=== PATIENT | male | born 1970 | race Caucasian/White ===

== ENCOUNTER 2020-07-01 11:44 | Outpatient (REF) | payer OTHER, SELFPAY ==
[2020-07-01 15:09] LABS: Alanine Aminotransferase 36 U/L (0-40); Albumin Level 4.4 g/dL (3.5-5.0); Alkaline Phosphatase 55 U/L (39-117); Anion Gap 13 (12-20); Aspartate Amino Transferase 23 U/L (5-37); Bilirubin Total 0.7 mg/dL (0.0-1.0); Blood Urea Nitrogen 14 mg/dL (9-16); Calcium 8.7 mg/dL (8.4-10.2); Carbon Dioxide 30 mmol/L (22-29); Chloride 101 mmol/L (96-108); Cholesterol 257 mg/dL; Estimated Glomerular Filt Rate > 60; Glucose Fasting 82 mg/dL (60-99); HDL Cholesterol 57 mg/dL; LDL Cholesterol Calculated 179 mg/dl; Potassium 4.2 mmol/l (3.3-5.1); Sodium 140 mmol/L (135-145); Total Protein 7.5 g/dL (6.5-8.0); Triglycerides 105 mg/dL
[2020-07-01 15:23] LABS: TSH reflex Free T4 0.97 mIU/mL (0.32-4.0)
== END 2020-07-01 11:45 | disposition home or self-care (01) ==
LOC: HO.HMGCLDS 11:44
PROVIDERS: PCP Nurse Practitioner Family; Visit Provider Nurse Practitioner Family
DX: Z12.5 Encounter for screening for malignant neoplasm of prostate (principal); Z00.00 Encounter for general adult medical examination without abnormal findings
CPT/HCPCS: 80053; 80061; 84153; 84443

== ENCOUNTER 2020-12-31 10:22 | Outpatient (REF) | payer OTHER, SELFPAY ==
--- NOTE | ~2020-12-31 | US_ITS ---
EXAMINATION: US VENOUS ULTRASOUND WITH DOPPLER LOWER EXTREMITY, LEFT CLINICAL INFORMATION: Pain COMPARISON: Previous exam December 2012 TECHNIQUE: Ultrasound of the deep veins is performed from the hip to the calf with compression sonography and color and pulse Doppler assessment. Spectral analysis with color-flow imaging is performed. FINDINGS: There is normal venous compression and respiratory variation and augmented flow. The visualized common femoral vein, superficial femoral vein, profunda femoral vein, popliteal vein, and the trifurcation region shows no evidence of deep venous thrombosis. There is no popliteal fossa cyst. US/US venous duplex LE LT IMPRESSION: No DVT demonstrated in the left lower extremity.
== END 2020-12-31 10:23 | disposition home or self-care (01) ==
LOC: HO.US 10:22
PROVIDERS: PCP Nurse Practitioner Family; Visit Provider Nurse Practitioner Family
DX: M79.662 Pain in left lower leg (principal); E66.9 Obesity, unspecified
CPT/HCPCS: 93971

== ENCOUNTER 2021-04-10 08:30 | Outpatient (REF) | payer OTHER, SELFPAY ==
[2021-04-10 11:35] LABS: MANUAL DIFF FLAG NO
[2021-04-10 11:48] LABS: Basophils Absolute Auto 0.1 X10*3/uL (0.0-0.2); Eosinophils Absolute Auto 0.1 X10*3/uL (0.0-0.4); Eosinophils Percent Auto 2.4 % (0-4); Hematocrit 43.8 % (42-52); Hemoglobin 14.7 g/dl (14.0-18.0); Imm Gran Abs Auto 0.01 X10*3/uL (0.00-0.03); Imm Gran Pct Auto 0.2 % (0.0-0.4); Mean Corpuscular HGB Conc 33.6 g/dl (31.0-36.0); Mean Corpuscular Hemoglobin 30.3 pg (27.0-33.0); Mean Corpuscular Volume 90.3 fL (80-98); Mean Platelet Volume 10.2 fL (9.4-12.4); Monocytes Absolute Auto 0.6 X10*3/uL (0.1-1.2); Neutrophils Absolute Auto 2.2 X10*3/uL (2.0-8.3); Neutrophils Percent Auto 44.4 % (45-73); Platelet Count 240 X10*3/uL (160-400); Red Blood Count 4.85 X10*6/uL (4.60-5.80); Red Cell Distribution Width 12.2 % (11.0-16.0); White Blood Count 4.9 X10*3/uL (4.8-10.8)
[2021-04-10 11:50] LABS: Ethanol < 10 mg/dL
[2021-04-10 12:04] LABS: Alanine Aminotransferase 24 U/L (0-40); Alkaline Phosphatase 47 U/L (39-117); Anion Gap 11 (12-20); Aspartate Amino Transferase 21 U/L (5-37); Bilirubin Total 0.5 mg/dL (0.0-1.0); Blood Urea Nitrogen 14 mg/dL (9-16); Calcium 9.2 mg/dL (8.4-10.2); Carbon Dioxide 27 mmol/L (22-29); Chloride 103 mmol/L (96-108); Estimated Glomerular Filt Rate > 60; Glucose Random 102 mg/dL (60-115); Potassium 4.5 mmol/L (3.3-5.1); Sodium 136 mmol/L (135-145); Total Protein 6.7 g/dL (6.5-8.0)
[2021-04-10 12:05] LABS: Amphetamine Screen Urine Not Detected (Not Detect); Barbiturates, Urine Not Detected (Not Detect); Benzodiazepines Screen Urine Not Detected (Not Detect); Cannabinoid Screen Urine Not Detected (Not Detect); Cocaine Screen Urine Not Detected (Not Detect); Fentanyl, urine Not Detected (Not Detect); Opiate Screen Urine Not Detected (Not Detect); Phencyclidine Screen Urine Not Detected (Not Detect)
[2021-04-17 11:47] LABS: EDDP (Methadone Metabolite) negative; Methadone, Urine MS negative
== END 2021-04-10 08:31 | disposition home or self-care (01) ==
LOC: HO.HMGCLDS 08:30
PROVIDERS: PCP Nurse Practitioner Family; Visit Provider Nurse Practitioner Psychiatric/Mental Health
DX: Z51.81 Encounter for therapeutic drug level monitoring (principal); Z79.899 Other long term (current) drug therapy
CPT/HCPCS: 80053; 80307; 80358; 82077; 85025

== ENCOUNTER 2021-07-22 12:13 | Outpatient (REF) | payer OTHER, SELFPAY ==
[2021-07-22 12:57] LABS: Influenza A PCR NEGATIVE (Negative); Influenza B PCR NEGATIVE (Negative); Resp Syncy Virus RNA Qual PCR NEGATIVE (Negative); SARS COV2 PCR INHOUSE POSITIVE (Negative)
== END 2021-07-22 12:14 | disposition home or self-care (01) ==
LOC: HO.LNP 12:13
PROVIDERS: Visit Provider Physician Assistant
DX: Z20.822 Contact with and (suspected) exposure to COVID-19 (principal); B34.9 Viral infection, unspecified; R05.9 Cough, unspecified
CPT/HCPCS: 0241U

== ENCOUNTER 2023-06-21 08:19 | Outpatient (REF) | payer OTHER, SELFPAY ==
[2023-06-21 11:19] LABS: Appearance Urine Clear; Color Urine Yellow; Glucose Urine UA Negative (Negative); Leukocyte Esterase Urine Negative (Negative); Nitrite Urine Negative (Negative); PH 5.5 (5.0-9.0); Specific Gravity - Urine >= 1.030 (1.005-1.025); UMIC TRIGGER UACC YES; Urine Blood Trace (Negative); Urine Ketones Negative (Negative); Urine Protein Negative (Neg-Trace)
[2023-06-21 11:29] LABS: Bacteria Urine None Seen (None Seen); Hyaline Casts Urine 0-2 /LPF (0-2); MANUAL DIFF FLAG NO; RBC Urine 0-2 /HPF (0-2); Squamous Epithelial Cell Urine 0-2 /HPF (0-2); WBC Urine 0-5 /HPF (0-5)
[2023-06-21 11:41] LABS: Basophils Absolute Auto 0.1 X10*3/uL (0.0-0.2); Basophils Percent Auto 0.8 % (0-2); Eosinophils Absolute Auto 0.1 X10*3/uL (0.0-0.4); Eosinophils Percent Auto 2.1 % (0-4); Hematocrit 45.1 % (42.0-52.0); Hemoglobin 15.1 g/dl (14.0-18.0); Imm Gran Abs Auto 0.01 X10*3/uL (0.00-0.03); Imm Gran Pct Auto 0.2 % (0.0-0.4); Lymphocytes Absolute Auto 2.1 X10*3/uL (1.2-4.9); Lymphocytes Percent Auto 33.8 % (20-40); Mean Corpuscular HGB Conc 33.5 g/dl (31.0-36.0); Mean Corpuscular Hemoglobin 30.1 pg (27.0-33.0); Mean Platelet Volume 9.7 fL (9.4-12.4); Monocytes Absolute Auto 0.7 X10*3/uL (0.1-1.2); Monocytes Percent Auto 11.9 % (2-11); Neutrophils Absolute Auto 3.1 x10*3/uL (2.0-8.3); Neutrophils Percent Auto 51.2 % (45-73); Platelet Count 243 X10*3/uL (160-400); Red Blood Count 5.01 X10*6/uL (4.60-5.80); Red Cell Distribution Width 12.1 % (11.0-16.0); White Blood Count 6.1 X10*3/uL (4.8-10.8)
[2023-06-21 11:53] LABS: Alanine Aminotransferase 27 U/L (0-40); Alkaline Phosphatase 45 U/L (39-117); Anion Gap 8 (12-20); Aspartate Amino Transferase 19 U/L (5-37); Bilirubin Total 0.4 mg/dL (0.0-1.0); Blood Urea Nitrogen 18 mg/dL (9-16); Calcium 9.3 mg/dL (8.4-10.2); Carbon Dioxide 30 mmol/L (22-29); Chloride 105 mmol/L (96-108); Cholesterol 226 mg/dL (<200); Estimated Glomerular Filt Rate > 60; Glucose Fasting 109 mg/dL (60-99); HDL Cholesterol 58 mg/dL (>40); LDL Cholesterol Calculated 156 mg/dL (<100); Potassium 4.1 mmol/L (3.3-5.1); Sodium 139 mmol/L (135-145); Total Protein 7.1 g/dL (6.5-8.0); Triglycerides 64 mg/dL (<150)
[2023-06-21 12:07] LABS: Prostate Specific Antigen Scr 0.37 ng/mL (<0.05-4.0)
[2023-06-21 12:18] LABS: TSH reflex Free T4 0.87 uIU/mL (0.32-4.0)
== END 2023-06-21 08:20 | disposition home or self-care (01) ==
LOC: HO.HMGCLDS 08:19
PROVIDERS: PCP Nurse Practitioner Family; Visit Provider Nurse Practitioner Family
DX: Z00.00 Encounter for general adult medical examination without abnormal findings (principal); R31.29 Other microscopic hematuria; Z12.5 Encounter for screening for malignant neoplasm of prostate
CPT/HCPCS: 36415; 80053; 80061; 81001; 84153; 84443; 85025

== ENCOUNTER 2023-06-21 08:39 | Outpatient (AMB) | payer OTHER, SELFPAY ==
--- NOTE | 2023-06-21 08:43 | MHC.PC.OV ---
Vital Signs 06/21/23 08:44 Height 5 ft 11 in Weight 290 lb BMI 40.4 BP 120/64 Blood Pressure Location Lt brachial Position Sitting Pulse 72 Pulse Source Pulse Oximeter Pulse Oximetry (%) 96 Oxygen Delivery Method Room Air Intake Visit Reasons: Med Review PER AG Intake Note: Pt is here today for her Med review Allergies codeine Adverse Reaction (Mild, Verified 06/21/23 08:45) Unknown Medication List - Last Reconciled 06/21/23 by HETAL Chavez ascorbate calcium (vitamin C) 500 mg PO DAILY bupropion HCl 150 mg PO QAM 30 days bupropion HCl 300 mg PO BEDTIME cholecalciferol (vitamin D3) PO DAILY dextroamphetamine-amphetamine 20 mg 1 tab PO BID lisinopril 10 mg PO DAILY tadalafil 10 mg PO DAILY PRN 30 days trazodone 100 mg PO BEDTIME Tobacco use date assessed: 06/21/23 Dental Screening Dental Screen Date: 06/21/23 Did you have a dental visit in the last 12 months?: Yes Did you have a dental problem in the last 6 months where you did not have access to dental care?: Yes Was dental information given to patient?: Patient has dentist HPI Med Review PER AG HPI Details HTN: Blood pressure is stable, managed with lisinopril 10mg. Denies chest pain, shortness of breath, headache, dizziness, and blurred vision. PFSH Medical History Erectile dysfunction Anxiety Depression Dyslipidemia Essential hypertension Insomnia ADHD Surgical History History of surgery Family History Father No problems noted. Mother Myocardial infarction Pancreatic cancer Social History Housing: Apartment Alcohol intake: never Patient Tobacco Use Status: Never used Tobacco e-Cigarette/Vaping Use: Never Used service: No Current occupational status: employed Cognitive needs: No Hearing needs: No Vision needs: Yes Questionnaire PHQ-9 Over the last 2 weeks, how often have you been bothered by any of the following problems? 1. Little interest or pleasure in doing things: not at all 2. Feeling down, depressed, or hopeless: several days 3. Trouble falling or staying asleep, or sleeping too much: not at all 4. Feeling tired or having little energy: not at all 5. Poor appetite or overeating: not at all 6. Feeling bad about yourself - or that you are a failure or have let yourself or your family down: not at all 7. Trouble concentrating on things, such as reading the newspaper or watching television: not at all 8. Moving or speaking so slowly that other people could have noticed. Or the opposite - being so fidgety or restless that you have been moving around a lot more than usual: not at all 9. Thoughts that you would be better off or of hurting yourself in some way: not at all Total score: 1 Source: Developed by Drs. Lan Scanlon, Dahlia Jones, Frederick Matute and colleagues, with an educational alexand[place] from [employer]. Thrive Questionnaire Date Thrive assessed: 06/21/23 I am a: Patient What is your living situation today?: I have a steady place to live Within the past 12 months, did the food you bought not last and you didn't have the money to get more?: Never true Within the past 12 months, did you worry whether your food would run out before you got money to buy more?: Never true Do you have trouble paying for medicines?: No Do you have trouble getting transportation to medical appointments?: No Do you have trouble paying your heating and electricity bill?: No Do you have trouble taking care of your child, family member or friend?: No Do you have trouble with day-to-day activities such as bathing, preparing meals, shopping, managing finances, etc.?: No Are you currently unemployed and looking for a job?: No Are you interested in more education?: No AUDIT C Alcohol Use Questionnaire (AUDIT-C) 1. How often do you have a drink containing alcohol?: Never Total Score: 0 JONES-7 AMB Questionnaire JONES-7 Date JONES - 7 assessed: 06/21/23 Feeling nervous, anxious, or on edge: 2 = More than half the days Not being able to stop or control worryin = Not at all Worrying too much about different things: 0 = Not at all Trouble relaxin = Not at all Being so restless that it is hard to sit still: 0 = Not at all Becoming easily annoyed or irritable: 1 = Several days Feeling afraid as if something awful might happen: 0 = Not at all Total JONES-7 score (0-4 normal; 5-9 mild; 10-14 moderate; 15-21 severe): 3 Source: Developed by Drs. Lan Scanlon, Dahlia Jones, Frederick Matute and colleagues, with an educational alexandria from [employer]. Review of Systems Const Reports as per HPI Physical exam (Primary Care) Vital Signs: Last Vital Signs Pulse 72 06/21/23 08:44 BP 120/64 06/21/23 08:44 Pulse Ox 96 06/21/23 08:44 Oxygen Delivery Method Room Air 06/21/23 08:44 BMI result Body Mass Index 40.4 Tobacco/Smoking Status: Tobacco use Status Tobacco use date assessed 06/21/23 06/21/23 08:52 Patient Tobacco Use Status Never used Tobacco 06/21/23 08:52 e-Cigarette/Vaping Use Never Used 06/21/23 08:52 Thrive Assessment: Date of Thrive Assessment Date Thrive assessed 06/21/23 06/21/23 08:52 Const General: cooperative Nutritional Appearance: obese Orientation/consciousness: patient oriented x3 Resp Effort & Inspection: normal respiratory effort Auscultation: clear to auscultation bilaterally Cardio Rate: regular rate Rhythm: regular rhythm Heart sounds: S1 normal heart sound present and S2 normal heart sound present Neuro General: patient oriented x3 Extrem Right lower extremity: no edema Left lower extremity: no edema Psych Appearance: grossly normal Mental Status: mental status grossly normal Speech and movement: Normal speech and movement present Affect: normal affect Attitude: cooperative Thought process: Normal thought process present Thought content: Normal thought content present Insight: Good insight present (Psych) Judgement: Good judgement present (Psych) Immunizations Boostrix Tdap 2.5 Lf unit-8 mcg-5 Lf/0.5 mL intramuscular syringe Performing Provider: HETAL Chavez Performing Location: [facility] Administered by: Taisha Prince CMA on 06/21/23 09:22 Dose Route Admin Location Dispensed Lot Number Expiration Date NDC Portable Trackman 0.5 mL IM Left Deltoid 0.5 mL [id number] 06/23/25 [id number] [employer] VIS Given Date VIS Provided VIS Publication Date 06/21/23 Single Vaccine 21 Eligibility Eligibility Date Funding Source Not VF Eligible 06/21/23 Private Assessment and Plan Assessment & Plan (1) HTN (hypertension): Code(s): I10 - Essential (primary) hypertension Plan The patient agreed to the use of a medical interpreter for this encounter. Scribed for BRIANNA Abbott- by Aileen James medical interpreter, on 06/21/2023 at 09:00 EST. Orders: Orders TDaP Immunization Today Z23 - Encounter for immunization Medications: New Boostrix Tdap (diphth,pertus(acell),tetanus) 0.5 mL IM ONCE 0.5 mL 0RF NS Z23 - Encounter for immunization Changed From trazodone 100 mg PO BEDTIME 30 days 30 tabs 2RF sleep To trazodone 3 tablets qd 100 mg PO BEDTIME sleep From lisinopril Future refills pending upcoming appt 10 mg PO DAILY 30 tabs 1RF To lisinopril 10 mg PO DAILY 90 tabs 1RF Refilled tadalafil administer approximately 30min before sexual activity; do not use more than 1 dose per 24hrs Future refills pending upcoming appt 10 mg PO DAILY 30 days PRN 30 tabs 0RF sexual activity Coding Level of Care Code Est Pt Level 3 (57450) Diagnoses HTN (hypertension) I10
[2023-06-21 08:44] VITALS: BP 120/64; PULSE 72; O2SAT 96; BMI 40.4
== END 2023-06-21 15:01 | disposition home or self-care (01) ==
PROVIDERS: PCP Nurse Practitioner Family; Visit Provider Nurse Practitioner Family
DX: I10 Essential (primary) hypertension (principal); Z23 Encounter for immunization
CPT/HCPCS: 90471; 90715; 99213

== ENCOUNTER 2023-06-28 08:34 | Outpatient (AMB) | payer OTHER, SELFPAY ==
--- NOTE | 2023-06-28 08:58 | MHC.OFFWIV ---
Intake Vital Signs 06/28/23 08:59 Height 5 ft 11 in Weight 130.748 kg BMI 40.2 BP 126/70 Blood Pressure Location Rt brachial Position Sitting Pulse 69 Pulse Source Pulse Oximeter Pulse Oximetry (%) 94 Oxygen Delivery Method Room Air Intake Visit Reasons: EP, rash on back and side ([phone]) Intake Note: pt is here for c.o rash on back and side chest mostly on left side of body, denies starting new medication Patient Tobacco Use Status: Never used Tobacco Allergies codeine Adverse Reaction (Mild, Verified 06/28/23 09:00) Unknown Do you need a note to return to daycare/school/sports/work: Yes HPI HPI Comments History of Present Illness Details 0911 53-year-old male presents with a painful rash to the left side of his body that is wrapping around, only on his left side though over the past few days, it started with pain and then he had blistering. No one around him has this rash. He has had chickenpox before however no has never had shingles. He is under a good amount of stress. Denies fevers, chills, nausea, vomiting, chest pain, shortness of breath, headache, vision changes, dizziness, changes in urinary habits or bowel habits. Physical exam vesscicular rash in a dermatomal formation overlying T3/T4 on the left side of the body size, left-sided flank in to side of flank on erythematous base. Painful This is likely shingles versus contact dermatitis. Unlikely necrotizing infection, TEN, SJS. Will discharge on Valtrex. Educated patient on diagnosis and treatment plan, answered all question, patient verbalizes understanding. At this time patient will be discharged home, advised to return with new or worsening symptoms. Educated on worrisome signs and symptoms and when to return. At this time I feel comfortable discharge home. [facility] Medical History Dyslipidemia Erectile dysfunction Anxiety Depression Essential hypertension Insomnia ADHD Surgical History History of surgery Family History Father No problems noted. Mother Myocardial infarction Pancreatic cancer Social History Housing: Apartment Alcohol intake: never Patient Tobacco Use Status: Never used Tobacco e-Cigarette/Vaping Use: Never Used service: No Current occupational status: employed Cognitive needs: No Hearing needs: No Vision needs: Yes Review of Systems Const Details: Constitutional : No Weight loss, No Fever, No Chills, No Fatigue, No Malaise ENT/Mouth : No sore throat, No Rhinorrhea Eyes: No Eye Pain, No Swelling, No Redness Cardiovascular : No Chest Pain, No SOB, No Dyspnea on Exertion, No Orthopnea, No Edema, No Palpitations Respiratory : No Cough, No Sputum, No Wheezing Gastrointestinal : No Nausea, No Vomiting, No Diarrhea, No Constipation, No abdominal Pain, No Hematochezia, No Melena Genitourinary : No Dysuria, No Urinary Frequency, No Hematuria, Musculoskeletal : No joint pain, No Myalgias, No Joint Swelling Skin : No Skin Lesions, + rash Neuro : No Weakness, No Numbness, No Dizziness, No Headache Psych : No Anxiety/Panic, No Depression All other systems reviewed and are negative All systems reviewed & are unremarkable except as noted in HPI and below Physical Exam Vital Signs: Last Vital Signs Pulse 69 06/28/23 08:59 BP 126/70 06/28/23 08:59 Pulse Ox 94 06/28/23 08:59 Oxygen Delivery Method Room Air 06/28/23 08:59 BMI result Body Mass Index 40.2 vss Appearance: Alert.? Oriented X3.? No acute distress.? Head: Normocephalic, atraumatic, no step-offs or deformities Eyes: Pupils equal, round and reactive to light.? ENT: Pharynx normal.? Neck: Normal inspection.? Neck supple.? CVS: Normal heart rate and rhythm.? Pulses normal.? Respiratory: No respiratory distress.? Breath sounds normal.? Abdomen: Soft and nontender.? Skin: Skin warm and dry.? Normal skin color.? Normal skin turgor.?+ vesscicular rash in a dermatomal formation overlying T3/T4 on the left side of the body size, left-sided flank in to side of flank on erythematous base. Painful Extremities: No lower extremity edema.? No calf ttp. 5/5 strength to bilateral upper and lower extremities Back: No midline tenderness, no C-spine tenderness, full range of motion, no CVA tenderness bilaterally Neuro: Oriented X 3.? No motor deficit.? No sensory deficit. CN 2-12 intact Assessment & Plan Assessment & Plan (1) Shingles: Code(s): B02.9 - Zoster without complications Plan Take your medications as prescribed. If you were prescribed antibiotics today, it is important that you take your medication to their entirety, do not skip any doses, do not finish them early. Follow-up with your primary care provider this week. Return to the emergency department with new or worsening symptoms. Such as fevers, chills, chest pain, shortness of breath, nausea, vomiting, dizziness, headache, vision changes, lethargy In case of emergency call 911 Medications: New valacyclovir (Valtrex) 1,000 mg PO TID 7 days 21 tabs 0RF Coding Level of Care Code Est Pt Level 3 (48058) Diagnoses Shingles B02.9
[2023-06-28 08:59] VITALS: BP 126/70; PULSE 69; O2SAT 94; BMI 40.2
== END 2023-06-28 09:30 | disposition home or self-care (01) ==
PROVIDERS: PCP Nurse Practitioner Family; Visit Provider Physician Assistant
DX: B02.9 Zoster without complications (principal)
CPT/HCPCS: 99213

== ENCOUNTER 2023-07-05 13:34 | Outpatient (AMB) | payer OTHER, SELFPAY ==
--- NOTE | 2023-07-05 13:35 | MHC.PC.OV ---
Vital Signs 07/05/23 13:40 Height 5 ft 11 in Weight 290 lb BMI 40.4 BP 130/82 Blood Pressure Location Lt brachial Position Sitting Pulse 78 Pulse Source Pulse Oximeter Pulse Oximetry (%) 98 Oxygen Delivery Method Room Air Intake Visit Reasons: PE Intake Note: Patient here for physical exam and would like to address weight and would like to talk about wegovy. Allergies codeine Adverse Reaction (Mild, Verified 07/05/23 13:39) Unknown Medication List - Last Reconciled 07/05/23 by HETAL Chavez ascorbate calcium (vitamin C) 500 mg PO DAILY atorvastatin 20 mg PO BEDTIME bupropion HCl 150 mg PO QAM 30 days bupropion HCl 300 mg PO BEDTIME cholecalciferol (vitamin D3) PO DAILY dextroamphetamine-amphetamine 20 mg 1 tab PO BID lisinopril 10 mg PO DAILY sertraline 100 mg PO BID tadalafil 10 mg PO DAILY PRN 30 days trazodone 100 mg PO BEDTIME valacyclovir (Valtrex) 1,000 mg PO TID 7 days Tobacco use date assessed: 06/21/23 Dental Screening Dental Screen Date: 07/05/23 Did you have a dental visit in the last 12 months?: Yes Did you have a dental problem in the last 6 months where you did not have access to dental care?: No Was dental information given to patient?: Patient has dentist HPI PE HPI Details Pt is here for a PE. Labs were already performed. atorvastatin sent, but not picked up yet. PSA is up to date. Micro hem noted, UA, culture, cytology, and CT urogram ordered. Pt does not smoke, works as a [employer]. Will refer to urology. Pt has never had a colon screen though he has been referred in the past. Will refer again. [facility] Medical History (Updated 07/05/23 @ 14:00 by HETAL Chavez) Screening for colon cancer Dyslipidemia Erectile dysfunction Anxiety Depression Essential hypertension Insomnia ADHD Surgical History History of surgery Family History Father No problems noted. Mother Myocardial infarction Pancreatic cancer Social History Housing: Apartment Alcohol intake: never Patient Tobacco Use Status: Never used Tobacco e-Cigarette/Vaping Use: Never Used service: No Current occupational status: employed Cognitive needs: No Hearing needs: No Vision needs: Yes Questionnaire Thrive Questionnaire Date Thrive assessed: 06/21/23 AUDIT C Alcohol Use Questionnaire (AUDIT-C) 1. How often do you have a drink containing alcohol?: Never 3. How often do you have six or more drinks on one occasion?: Never Total Score: 0 Score Reviewed/Action Taken: No JONES-7 AMB Questionnaire JONES-7 Date JONES - 7 assessed: 06/21/23 Source: Developed by Drs. Lan Scanlon, Dahlia Jones, Frederick Matute and colleagues, with an educational alex[place]ria from [employer] Review of Systems Const Denies chills and Denies fever(s) Eyes Denies blurry vision ENT Denies vertigo, Denies dizziness and Denies sore throat Card Denies chest pain at rest, Denies chest pain with activity, Denies diaphoresis, Denies dyspnea and Denies dyspnea on exertion Resp Denies cough, Denies dyspnea, Denies dyspnea on exertion and Denies wheezing GI Denies abdominal pain, Denies melena, Denies hematochezia, Denies constipation, Denies diarrhea and Denies loose stools Denies hematuria Musc Denies numbness and Denies tingling Skin/Breast Denies lesions Neuro Denies vertigo, Denies dizziness, Denies numbness and Denies tingling Psych Denies anxiety, Denies depression, Denies homicidal ideation, Denies suicidal ideation and Denies other (substance abuse) Aller/Immun Denies wheezing Physical exam (Primary Care) Vital Signs: Last Vital Signs Pulse 78 07/05/23 13:40 BP 130/82 07/05/23 13:40 Pulse Ox 98 07/05/23 13:40 Oxygen Delivery Method Room Air 07/05/23 13:40 BMI result Body Mass Index 40.4 Tobacco/Smoking Status: Tobacco use Status Tobacco use date assessed 06/21/23 07/05/23 13:37 Patient Tobacco Use Status Never used Tobacco 07/05/23 13:37 e-Cigarette/Vaping Use Never Used 07/05/23 13:37 Thrive Assessment: Date of Thrive Assessment Date Thrive assessed 06/21/23 07/05/23 13:37 Const General: cooperative Nutritional Appearance: obese morbidly obese Orientation/consciousness: patient oriented x3 HENMT Head: Yes normal to inspection, Yes normocephalic and Yes atraumatic Ears: TM's normal bilaterally Eyes General: appearance normal, both eyes and all related structures Alignment and Position: alignment normal and position normal Neck Neck: Yes normal visual inspection and Yes no lymphadenopathy Thyroid: Thyroid normal Resp Effort & Inspection: normal respiratory effort Auscultation: clear to auscultation bilaterally Cardio Rate: regular rate Rhythm: regular rhythm Heart sounds: S1 normal heart sound present, S2 normal heart sound present and no murmurs GI Palpation (GI): Soft to palpation and nontender Auscultation: normal bowel sounds Male General Exam: Yes normal external exam Penis: normal penis Scrotum: scrotum normal, testes descended bilaterally and no inguinal hernias Testes: no testicular mass Skin Rashes: no rashes Neuro General: patient oriented x3, moves all extremities, no focal motor deficits and deep tendon reflexes 2+ bilaterally Romberg Test: Negative Psych Appearance: grossly normal Mental Status: mental status grossly normal Speech and movement: Normal speech and movement present Affect: normal affect Attitude: cooperative Thought process: Normal thought process present Thought content: Normal thought content present Insight: Good insight present (Psych) Judgement: Good judgement present (Psych) Office Procedures Flu Questionnaire Does the patient have a severe egg allergy?: No Does the patient have severe life threatening allergies?: No Does the patient have a fever or illness today?: No Has the patient ever had Guillain-[place] Syndrome?: No Has the patient ever had any past reaction to a flu shot?: No Immunizations flu vacc [id number] 6mos up(PF) 60 mcg(15 mcgx4)/0.5 mL IM syringe Performing Provider: HETAL Chavez [facility] Administered by: ALEXANDRA Peace on 07/05/23 14:24 Dose Route Admin Location Dispensed Lot Number Expiration Date NDC Labor Standards Director 0.5 mL IM Left Deltoid 0.5 mL [id number] 01/16/24 [id number] [facility] VIS Given Date VIS Provided VIS Publication Date 07/05/23 Single Vaccine 21 Eligibility Eligibility Date Funding Source Not [facility] Eligible 07/05/23 Private Assessment and Plan Assessment & Plan (1) Microhematuria: Code(s): R31.29 - Other microscopic hematuria Plan: CT urogram ordered (2) Screening for colon cancer: Code(s): Z12.11 - Encounter for screening for malignant neoplasm of colon (3) Physical exam: Code(s): Z00.00 - Encounter for general adult medical examination without abnormal findings Plan The patient agreed to the use of a medical superintendent for this encounter. Scribed for BRIANNA Abbott-BC by Aileen James medical superintendent, on 07/05/2023 at 13:55 EST. Orders: Orders CT urogram Today R31.29 - Other microscopic hematuria AMB EKG-In Office Today Z00.00 - Encounter for general adult medical examination without abnormal findings Influenza [id number] Immunization Today Z23 - Encounter for immunization Referrals Urology Referral R31.29 - Other microscopic hematuria Gastroenterology Referral Z12.11 - Encounter for screening for malignant neoplasm of colon Medications: Refilled atorvastatin 20 mg PO BEDTIME 90 tabs 1RF atorvastatin 20 mg PO BEDTIME 90 tabs 1RF Coding Level of Care Code Est Pt Prev Care 40-64y(80606) Diagnoses Microhematuria R31.29 Screening for colon cancer Z12.11 Physical exam Z00.00
[2023-07-05 13:40] VITALS: BP 130/82; PULSE 78; O2SAT 98; BMI 40.4
== END 2023-07-05 14:47 | disposition home or self-care (01) ==
PROVIDERS: PCP Nurse Practitioner Family; Visit Provider Nurse Practitioner Family
DX: Z00.00 Encounter for general adult medical examination without abnormal findings (principal); R31.29 Other microscopic hematuria; Z12.11 Encounter for screening for malignant neoplasm of colon; Z23 Encounter for immunization
CPT/HCPCS: 90471; 90686; 99396

== ENCOUNTER 2023-09-01 10:45 | Outpatient (AMB) | payer OTHER, SELFPAY ==
[2023-09-01 12:32] VITALS: BP 112/72; PULSE 69; TEMP 36.5; O2SAT 96; BMI 40.3
--- NOTE | 2023-09-01 12:32 | MHC.OFFWIV ---
Intake Vital Signs 09/01/23 12:32 Height 5 ft 11 in Weight 289 lb BMI 40.3 BP 112/72 Blood Pressure Location Lt brachial Position Sitting Pulse 69 Pulse Source Pulse Oximeter Temp 97.7 F Temp Source Temporal Artery Scan Pulse Oximetry (%) 96 Oxygen Delivery Method Room Air Intake Visit Reasons: EST/cough/stomach ache([phone]) Intake Note: pt is here today for cough stomach ache started wednesday Patient Tobacco Use Status: Never used Tobacco Allergies codeine Adverse Reaction (Mild, Verified 09/01/23 13:19) Unknown Medication List - Last Reconciled 09/01/23 by Lars Guzman MD ascorbate calcium (vitamin C) 500 mg PO DAILY atorvastatin 20 mg PO BEDTIME bupropion HCl 150 mg PO QAM 30 days bupropion HCl 300 mg PO BEDTIME cholecalciferol (vitamin D3) PO DAILY dextroamphetamine-amphetamine 20 mg 1 tab PO BID lisinopril 10 mg PO DAILY sertraline 100 mg PO BID tadalafil 10 mg PO DAILY PRN 30 days trazodone 150 - 300 mg PO BEDTIME PRN valacyclovir (Valtrex) 1,000 mg PO TID 7 days Do you need a note to return to daycare/school/sports/work: Yes HPI EST/cough/stomach ache([phone]) HPI Details 53-year-old male presents to the office for a sick visit. Patient is complaining of bloated sensation in his belly. Symptoms present for the past few days. Preceding these symptoms he had cough, sinus congestion. The symptoms have resolved. 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 [facility] Medical History (Updated 07/05/23 @ 14:00 by HETAL Chavez) Screening for colon cancer Dyslipidemia Erectile dysfunction Anxiety Depression Essential hypertension Insomnia ADHD Surgical History History of surgery Family History Father No problems noted. Mother Myocardial infarction Pancreatic cancer Social History Housing: Apartment Alcohol intake: never Patient Tobacco Use Status: Never used Tobacco e-Cigarette/Vaping Use: Never Used service: No Current occupational status: employed Cognitive needs: No Hearing needs: No Vision needs: Yes Physical Exam Vital Signs: Last Vital Signs Temp 97.7 F 09/01/23 12:32 Pulse 69 09/01/23 12:32 BP 112/72 09/01/23 12:32 Pulse Ox 96 09/01/23 12:32 Oxygen Delivery Method Room Air 09/01/23 12:32 BMI result Body Mass Index 40.3 Const General: cooperative and healthy appearing Nutritional Appearance: well nourished Orientation/consciousness: patient oriented x3 Limitations: no limitations HEENT Head: Yes normal to inspection Eyes General: appearance normal, both eyes and all related structures Neck Neck: Yes normal visual inspection Chest Chest palpation & inspection: normal palpation of entire chest wall Resp Effort & Inspection: normal respiratory effort Neuro General: patient oriented x3 Assessment & Plan Assessment & Plan (1) Dyspepsia: Code(s): R10.13 - Epigastric pain Plan: URI symptoms will improve on their own. PPI called in Coding Level of Care Code Est Pt Level 3 (79122) Diagnoses Dyspepsia R10.13
== END 2023-09-01 13:26 | disposition home or self-care (01) ==
PROVIDERS: PCP Nurse Practitioner Family; Visit Provider Internal Medicine
DX: R10.13 Epigastric pain (principal)
CPT/HCPCS: 99213

== ENCOUNTER 2024-04-17 09:05 | Outpatient (AMB) | payer OTHER, SELFPAY ==
[2024-04-17 09:11] VITALS: BP 110/68; PULSE 65; O2SAT 97; BMI 39.2
--- NOTE | 2024-04-17 09:11 | MHC.PC.OV ---
Vital Signs 04/17/24 09:11 Height 5 ft 11 in Weight 281 lb 6 oz BMI 39.2 BP 110/68 Blood Pressure Location Lt brachial Position Sitting Pulse 65 Pulse Source Pulse Oximeter Pulse Oximetry (%) 97 Oxygen Delivery Method Room Air Intake Visit Reasons: Check up Allergies codeine Adverse Reaction (Mild, Verified 04/17/24 09:11) Unknown Tobacco use date assessed: 04/17/24 Dental Screening Dental Screen Date: 04/17/24 Did you have a dental visit in the last 12 months?: Yes Did you have a dental problem in the last 6 months where you did not have access to dental care?: No Was dental information given to patient?: Patient has dentist HPI Check up HPI Details Dyslipidemia: Pt is not currently on any medications for this. Reenforced the importance of diet. Will order labs. Pt is obese. He is interested in trying a medication for this. Will have pt contact his insurance company regarding coverage for GLP-1 agonist. Denies fever, chills, and dizziness. Pt has a hx of micro hem. He did not complete further urine studies for this. Will resubmit. Denies any hematuria [facility] Medical History Screening for colon cancer Dyslipidemia Erectile dysfunction Anxiety Depression Essential hypertension Insomnia ADHD Surgical History History of surgery Family History Father No problems noted. Mother Myocardial infarction Pancreatic cancer Social History Housing: Apartment Alcohol intake: never Patient Tobacco Use Status: Never used Tobacco e-Cigarette/Vaping Use: Never Used service: No Current occupational status: employed Cognitive needs: No Hearing needs: No Vision needs: Yes Questionnaire PHQ-9 Over the last 2 weeks, how often have you been bothered by any of the following problems? 1. Little interest or pleasure in doing things: not at all 2. Feeling down, depressed, or hopeless: not at all 3. Trouble falling or staying asleep, or sleeping too much: not at all 4. Feeling tired or having little energy: not at all 5. Poor appetite or overeating: not at all 6. Feeling bad about yourself - or that you are a failure or have let yourself or your family down: not at all 7. Trouble concentrating on things, such as reading the newspaper or watching television: not at all 8. Moving or speaking so slowly that other people could have noticed. Or the opposite - being so fidgety or restless that you have been moving around a lot more than usual: not at all 9. Thoughts that you would be better off or of hurting yourself in some way: not at all Total score: 0 Depression Screening Interpretation: Negative Depression Screening Done: Yes 39610 - PHQ-9 Billing: Yes Source: Developed by Drs. Lan Scanlon, Dahlia Jones, Frederick Matute and colleagues, with an educational [place] from [employer] Thrive Questionnaire Date Thrive assessed: 04/17/24 I am a: Patient What is your living situation today?: I have a steady place to live Within the past 12 months, did the food you bought not last and you didn't have the money to get more?: I choose not to answer this question Within the past 12 months, did you worry whether your food would run out before you got money to buy more?: I choose not to answer this question Do you have trouble paying for medicines?: No Do you have trouble getting transportation to medical appointments?: No Do you have trouble paying your heating and electricity bill?: No Do you have trouble taking care of your child, family member or friend?: No Do you have trouble with day-to-day activities such as bathing, preparing meals, shopping, managing finances, etc.?: No Are you currently unemployed and looking for a job?: No Are you interested in more education?: No Please select the resources that you would like help with: None Currently or been in a relationship where the following occur: No concerns reported THRIVE Score: 0 AUDIT C Alcohol Use Questionnaire (AUDIT-C) 1. How often do you have a drink containing alcohol?: Never 3. How often do you have six or more drinks on one occasion?: Never Total Score: 0 Score Reviewed/Action Taken: Yes JONES-7 AMB Questionnaire JONES-7 Date JONES - 7 assessed: 04/17/24 Feeling nervous, anxious, or on edge: 0 = Not at all Not being able to stop or control worryin = Not at all Worrying too much about different things: 0 = Not at all Trouble relaxin = Not at all Being so restless that it is hard to sit still: 0 = Not at all Becoming easily annoyed or irritable: 0 = Not at all Feeling afraid as if something awful might happen: 0 = Not at all Total JONES-7 score (0-4 normal; 5-9 mild; 10-14 moderate; 15-21 severe): 0 Source: Developed by Drs. Lan Scanlon, Dahlia Jones, Frederick Matute and colleagues, with an educational [place] from [employer] JONES-7 Assessment Billing JONES-7 Assessment Tool: JONES-7 Assessment 69871 Review of Systems Const Reports as per HPI Physical exam (Primary Care) Vital Signs: Last Vital Signs Pulse 65 04/17/24 09:11 BP 110/68 04/17/24 09:11 Pulse Ox 97 04/17/24 09:11 Oxygen Delivery Method Room Air 04/17/24 09:11 BMI result Body Mass Index 39.2 Tobacco/Smoking Status: Tobacco use Status Tobacco use date assessed 04/17/24 04/17/24 09:13 Patient Tobacco Use Status Never used Tobacco 04/17/24 09:13 e-Cigarette/Vaping Use Never Used 04/17/24 09:13 PHQ-9: PHQ-9 Score PHQ-9: Total score 0 04/17/24 09:13 Depression Screening Interpretation: Negative Thrive Assessment: Date of Thrive Assessment Date Thrive assessed 04/17/24 04/17/24 09:13 Currently or been in a relationship where the following occur: No concerns reported Const General: cooperative Nutritional Appearance: obese Orientation/consciousness: patient oriented x3 Resp Effort & Inspection: normal respiratory effort Auscultation: clear to auscultation bilaterally Cardio Rate: regular rate Rhythm: regular rhythm Heart sounds: S1 normal heart sound present and S2 normal heart sound present General: Yes no CVA tenderness Back/Spine/Pelvis Back: no CVA tenderness Neuro General: patient oriented x3 Psych Appearance: grossly normal Mental Status: mental status grossly normal Speech and movement: Normal speech and movement present Affect: normal affect Attitude: cooperative Thought process: Normal thought process present Thought content: Normal thought content present Insight: Good insight present (Psych) Judgement: Good judgement present (Psych) Assessment and Plan Assessment & Plan (1) Dyslipidemia: Code(s): E78.5 - Hyperlipidemia, unspecified Plan: labs ordered (2) Obesity: Code(s): E66.9 - Obesity, unspecified Plan: encouraged diet, exercise. (3) Microhematuria: Code(s): R31.29 - Other microscopic hematuria Plan: resubmitted today, encourage cytology, further urine studies. Plan The patient agreed to the use of a medical scientific officer for this encounter. Scribed for BRIANNA Abbott-ODETTE by Aileen James medical scientific officer, on 04/17/2024 at 09:40 EST. Orders: Orders Complete Blood Count Auto Diff Today E66.9 - Obesity, unspecified, E78.5 - Hyperlipidemia, unspecified Comprehensive [place]. Panel Fast Today E66.9 - Obesity, unspecified, E78.5 - Hyperlipidemia, unspecified TSH reflex Free T4 Today E66.9 - Obesity, unspecified, E78.5 - Hyperlipidemia, unspecified UA CC w/rflx Micro + Cult Today E66.9 - Obesity, unspecified, E78.5 - Hyperlipidemia, unspecified Lipid Panel Today E66.9 - Obesity, unspecified, E78.5 - Hyperlipidemia, unspecified Coding Level of Care Code Est Pt Level 3 (32256) Diagnoses Dyslipidemia E78.5 Obesity E66.9 Microhematuria R31.29 Additional Codes JONES-7 Assessment Billing - JONES-7 Assessment Tool: JONES-7 Assessment [id number] ([id number])
== END 2024-04-17 09:58 | disposition home or self-care (01) ==
PROVIDERS: PCP Nurse Practitioner Family; Visit Provider Nurse Practitioner Family
DX: E78.5 Hyperlipidemia, unspecified (principal); E66.9 Obesity, unspecified; R31.29 Other microscopic hematuria; Z68.39 Body mass index [BMI] 39.0-39.9, adult

== ENCOUNTER → 2024-04-17 09:05 | Outpatient (BNVA) | payer OTHER, SELFPAY | PROVIDERS: PCP Nurse Practitioner Family; Visit Provider Nurse Practitioner Family | DX: E78.5 Hyperlipidemia, unspecified (principal); E66.9 Obesity, unspecified; R31.29 Other microscopic hematuria | CPT/HCPCS: 96127; 99212 ==

== ENCOUNTER → 2024-11-14 16:32 | Outpatient (BNVA) | payer OTHER, SELFPAY | PROVIDERS: PCP Nurse Practitioner Family; Visit Provider Nurse Practitioner Family ==

== ENCOUNTER 2024-11-20 07:21 | Outpatient (AMB) | payer OTHER, SELFPAY ==
--- NOTE | 2024-11-20 07:56 | A.OFFPC_ITS ---
Intake Visit Reasons: telehealth-weight f/up Allergies codeine Adverse Reaction (Mild, Verified 11/20/24 07:56) Unknown Medication List - Last Reconciled 11/20/24 by BRIANNA Chavez- Adderall 20 mg (dextroamphetamine-amphetamine) 20 mg PO BID NS lisinopril 10 mg PO DAILY tadalafil 10 mg PO DAILY PRN 30 days tirzepatide (weight loss) 15 mg (0.5 mL) subcut QWEEK trazodone 150 - 300 mg PO BEDTIME PRN valacyclovir (Valtrex) 1,000 mg PO TID 7 days venlafaxine ER 150 mg PO BEDTIME Tobacco use date assessed: 04/17/24 Dental Screening Dental Screen Date: 04/17/24 HPI telehealth-weight f/up HPI Details History of Present Illness The patient is a 54-year-old male presenting with a primary concern of obesity and dyslipidemia. He is actively managing his weight through lifestyle modifications such as diet regulation and gym attendance, in combination with pharmacological treatment using GLP-1 agonists. He reports successful weight loss and describes his current health status as excellent. He experiences no chest pain or shortness of breath. Psychological support is sought through regu lar sessions with a psychiatrist and a therapist, aiding in a multifaceted approach to his health concerns. He is proactive in managing his health, as demonstrated by his current engagement with the treatment plan and absence of bowel issues during this period. Review of Systems - Cardiovascular: Denies chest pain. - Respiratory: Denies shortness of breat h. - Gastrointestinal: Denies bowel issues. - General: Reports feeling Excellent. Plan This patient will continue the GLP-1 agonist therapy for obesity management, having noted its effectiveness and tolerability. Encouragement is given for maintaining regular physical activity and dietary vigilance. Laboratory tests will be recommended in the near future to assess the status of dyslipidemia. Ongoing psychiatric and therapeutic support will persist as part of his holistic care strategy. Discussion Notes I discussed the success and tolerance of GLP-1 agonists with the patient, which have supported his weight management goals. The benefits of continued lifestyle modifications, including diet and exercise, were reiterated. I emphasized the importance of regular laboratory evaluations to monitor dyslipidemia. The significance of psychiatric and therapeutic interventions in his care regimen was acknowledged, and I encouraged maintaining these supportive relationships. The collaborative nature of his treatment plan, aimed at achieving optimal health outcomes, was communicated. Patient Instructions - Continue taking your current GLP-1 ago nists as prescribed. - Keep up with your gym workouts and sta y consistent with your diet plan. - Schedule and go for lab tests soon to check your cholesterol levels. - Continue visiting your psychiatrist an d therapist regularly for support. - Return if you experience new symptoms or health concerns. REPLACED BY [facility] Medical History Screening for colon cancer Dyslipidemia Erectile dysfunction Anxiety Depression Essential hypertension Insomnia ADHD Surgical History History of surgery Family History Father No problems noted. Mother Myocardial infarction Pancreatic cancer Social History Housing: Apartment Alcohol intake: never Patient Tobacco Use Status: Never used Tobacco e-Cigarette/Vaping Use: Never Used service: No Current occupational status: employed Cognitive needs: No Hearing needs: No Vision needs: Yes Questionnaire Thrive Questionnaire Date Thrive assessed: 04/17/24 I am a: Patient What is your living situation today?: I have a steady place to live Within the past 12 months, did the food you bought not last and you didn't have the money to get more?: I choose not to answer this question Within the past 12 months, did you worry whether your food would run out before you got money to buy more?: I choose not to answer this question Do you have trouble paying for medicines?: No Do you have trouble getting transportation to medical appointments?: No Do you have trouble paying your heating and electricity bill?: No Do you have trouble taking care of your child, family member or friend?: No Do you have trouble with day-to-day activities such as bathing, preparing meals, shopping, managing finances, etc.?: No Are you interested in more education?: No Please select the resources that you would like help with: None Currently or been in a relationship where the following occur: No concerns reported THRIVE Score: 0 AUDIT C Alcohol Use Questionnaire (AUDIT-C) 3. How often do you have six or more drinks on one occasion?: Never Total Score: 0 JONES-7 AMB Questionnaire JNOES-7 Date JONES - 7 assessed: 04/17/24 Source: Developed by Drs. Lan Scanlon, Dahlia Jones, Frederick Matute and colleagues, with an educational [place] from [employer]. Physical exam (Primary Care) Tobacco/Smoking Status: Tobacco use Status Tobacco use date assessed 04/17/24 10/17/24 12:43 Patient Tobacco Use Status Never used Tobacco 10/17/24 12:43 e-Cigarette/Vaping Use Never Used 10/17/24 12:43 Thrive Assessment: Date of Thrive Assessment Date Thrive assessed 04/17/24 10/17/24 12:43 Currently or been in a relationship where the following occur: No concerns reported Telehealth Telehealth Telehealth Platform: [facility] Location of provider rendering services: practice address Location of patient: address on file Patient Identification confirmed using: Name, : Yes Telehealth method: video Patient verbally consented to treatment: Yes Patient verbally consented to billing insurance company: Yes Patient informed of any privacy concerns related to visit: Yes Minutes spent on Phone/Video with Pt.: 15 Coding Level of Care Code Tele Est Pt Level 3 (39033) Diagnoses Dyslipidemia E78.5 Obesity E66.9 Screening PSA (prostate specific antigen) Z12.5 Assessment & Plan Assessment & Plan (1) Dyslipidemia: Code(s): E78.5 - Hyperlipidemia, unspecified Category: Medical (2) Obesity: Code(s): E66.9 - Obesity, unspecified Category: Medical (3) Screening PSA (prostate specific antigen): Code(s): Z12.5 - Encounter for screening for malignant neoplasm of prostate Category: Medical Plan . Orders: Orders Complete Blood Count Auto Diff Today E66.9 - Obesity, unspecified, E78.5 - Hyperlipidemia, unspecified Comprehensive [place]. Panel Fast Today E66.9 - Obesity, unspecified, E78.5 - Hyperlipidemia, unspecified Lipid Panel Today E66.9 - Obesity, unspecified, E78.5 - Hyperlipidemia, unspecified TSH reflex Free T4 Today E66.9 - Obesity, unspecified, E78.5 - Hyperlipidemia, unspecified UA CC w/rflx Micro + Cult Today E66.9 - Obesity, unspecified, E78.5 - Hyperlipidemia, unspecified Prostate Specific Antigen Scr Today Z12.5 - Encounter for screening for malignant neoplasm of prostate Medications: Changed From tirzepatide (weight loss) increased dose 12.5 mg (0.5 mL) subcut QWEEK 2 mL 3RF To tirzepatide (weight loss) increased dose 15 mg (0.5 mL) subcut QWEEK 2 mL 3RF
== END 2024-11-20 08:49 | disposition home or self-care (01) ==
LOC: HO.HMCC 07:21
PROVIDERS: PCP Nurse Practitioner Family; Visit Provider Nurse Practitioner Family
DX: E78.5 Hyperlipidemia, unspecified (principal); E66.9 Obesity, unspecified; Z12.5 Encounter for screening for malignant neoplasm of prostate; Z68.32 Body mass index [BMI] 32.0-32.9, adult

== ENCOUNTER → 2024-11-20 07:21 | Outpatient (BNVA) | payer OTHER, SELFPAY | PROVIDERS: PCP Nurse Practitioner Family; Visit Provider Nurse Practitioner Family | DX: Z13.89 Encounter for screening for other disorder (principal) ==

== ENCOUNTER 2025-01-01 08:29 | Outpatient (REF) | payer OTHER, SELFPAY ==
[2025-01-01 10:24] LABS: MANUAL DIFF FLAG NO
[2025-01-01 10:31] LABS: Basophils Absolute Auto 0.1 X10*3/uL (0.0-0.2); Basophils Percent Auto 0.8 % (0-2); Eosinophils Absolute Auto 0.1 X10*3/uL (0.0-0.4); Eosinophils Percent Auto 1.3 % (0-4); Hematocrit 45.9 % (42.0-52.0); Hemoglobin 15.9 g/dl (14.0-18.0); Imm Gran Abs Auto 0.01 X10*3/uL (0.00-0.03); Imm Gran Pct Auto 0.1 % (0.0-0.4); Lymphocytes Absolute Auto 1.9 X10*3/uL (1.2-4.9); Lymphocytes Percent Auto 24.6 % (20-40); Mean Corpuscular HGB Conc 34.6 g/dl (31.0-36.0); Mean Corpuscular Hemoglobin 30.6 pg (27.0-33.0); Mean Corpuscular Volume 88.4 fL (80.0-98.0); Mean Platelet Volume 9.8 fL (9.4-12.4); Monocytes Absolute Auto 0.6 X10*3/uL (0.1-1.2); Monocytes Percent Auto 7.8 % (2-11); Neutrophils Absolute Auto 5.1 x10*3/uL (2.0-8.3); Neutrophils Percent Auto 65.4 % (45-73); Platelet Count 229 X10*3/uL (160-400); Red Blood Count 5.19 X10*6/uL (4.60-5.80); Red Cell Distribution Width 11.9 % (11.0-16.0); White Blood Count 7.7 X10*3/uL (4.8-10.8)
[2025-01-01 10:57] LABS: Alanine Aminotransferase 10 U/L (0-40); Albumin Level 4.2 g/dL (3.5-5.0); Alkaline Phosphatase 46 U/L (39-117); Anion Gap 11 (12-20); Aspartate Amino Transferase 21 U/L (5-37); Bilirubin Total 0.9 mg/dL (0.0-1.0); Blood Urea Nitrogen 17 mg/dL (9-16); Calcium 9.5 mg/dL (8.4-10.2); Carbon Dioxide 25 mmol/L (22-29); Chloride 106 mmol/L (96-108); Cholesterol 201 mg/dL (<200); Estimated Glomerular Filt Rate > 60; Glucose Fasting 96 mg/dL (60-99); HDL Cholesterol 52 mg/dL (>40); LDL Cholesterol Calculated 137 mg/dL (<100); Potassium 4.2 mmol/L (3.3-5.1); Sodium 138 mmol/L (135-145); Triglycerides 64 mg/dL (<150)
[2025-01-01 11:17] LABS: Prostate Specific Antigen Scr 0.54 ng/mL (<0.05-4.0); TSH reflex Free T4 0.44 uIU/mL (0.32-4.0)
== END 2025-01-01 08:30 | disposition home or self-care (01) ==
LOC: HO.HMGCLDS 08:29
PROVIDERS: PCP Nurse Practitioner Family; Visit Provider Nurse Practitioner Family
DX: E78.5 Hyperlipidemia, unspecified (principal); E66.9 Obesity, unspecified; Z12.5 Encounter for screening for malignant neoplasm of prostate
CPT/HCPCS: 36415; 80053; 80061; 84153; 84443; 85025

== ENCOUNTER 2025-01-30 09:14 | Outpatient (AMB) | payer OTHER, SELFPAY ==
[2025-01-30 09:17] VITALS: BP 96/60; PULSE 78; TEMP 36.4; O2SAT 100; BMI 28.2
--- NOTE | 2025-01-30 09:17 | MHC.OFFWIV ---
Intake Vital Signs 01/30/25 09:17 Height 5 ft 11 in Weight 202 lb BMI 28.2 BP 96/60 Blood Pressure Location Lt brachial Position Sitting Pulse 78 Pulse Source Pulse Oximeter Temp 97.5 F Pulse Oximetry (%) 100 Oxygen Delivery Method Room Air Intake Visit Reasons: EP Diarrhea, chills, no appetite Intake Note: presents with loose stools without pain, dizzy, headace tomach ache, for 2 days Patient Tobacco Use Status: Never used Tobacco Allergies codeine Adverse Reaction (Mild, Verified 01/30/25 09:23) Nausea and Vomiting Do you need a note to return to daycare/school/sports/work: No HPI HPI Comments History of Present Illness Details Patient presents to office with diarrhea symptoms On Tirzepatide for over a year and states always decreased appetite Ongoing x 2 days Subjective fever/chills; no documented fever/temp + sweaty + watery stools No melena or blood No abdominal pain, 0/10 No recent travel or known eating something abnormal Significant other and other family mmebers not sick at home + decreased appetite + nausea without vomiting He tried water but has loose stool right after No medicine tried PFSH Medical History Screening for colon cancer Dyslipidemia Erectile dysfunction Anxiety Depression Essential hypertension Insomnia ADHD Surgical History History of surgery Family History Father No problems noted. Mother Myocardial infarction Pancreatic cancer Social History Housing: Apartment Alcohol intake: never Patient Tobacco Use Status: Never used Tobacco e-Cigarette/Vaping Use: Never Used service: No Current occupational status: employed Cognitive needs: No Hearing needs: No Vision needs: Yes Review of Systems Const Reports chills, Reports excessive sweating, Reports fatigue, Reports fever(s), Reports poor appetite and Reports weight loss (over last year; intentional) Eyes Denies change in vision ENT Denies otalgia, Denies nasal congestion, Denies sore throat and Denies throat swelling Card Denies chest pain, Denies syncope and Denies dyspnea Resp Denies cough and Denies dyspnea GI Denies abdominal pain, Denies melena, Denies hematochezia, Denies constipation, Denies fecal incontinence, Reports diarrhea, Reports loose stools, Reports nausea and Denies vomiting Denies difficulty urinating Musc Reports muscle weakness Skin/Breast Denies rash Neuro Denies confusion, Denies syncope and Denies focal weakness Psych Denies confusion Endo Reports excessive sweating and Reports fatigue Aller/Immun Denies throat swelling Physical Exam Vital Signs: Last Vital Signs Temp 97.5 F 01/30/25 09:17 Pulse 78 01/30/25 09:17 BP 96/60 01/30/25 09:17 Pulse Ox 100 01/30/25 09:17 Oxygen Delivery Method Room Air 01/30/25 09:17 BMI result Body Mass Index 28.2 General: Non-toxic, NAD. Speaking full sentences. Skin: Warm dry throughout, slightly diaphoretic to forehead Eye: PERRL, EOMI HENT: Mucosa dry. Airway patent. Uvula midline. No pharyngeal erythema or edema. 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 Bilateral canals clear. TM non-erythematous, non-bulging. No TM perforation or hemotympanum noted. Respiratory: CTA bilaterally. No wheezes, rales or rhonchi Cardiac: RRR. No murmur Abdominal: BS present. Non-tender throughout. No palpable masses. No abdominal distention or pusatile mass. MSK: Full ROM extremities. Neurology: Alert. No aphasia or facial droop. Equal strength. Gait without abnormality Psych: Good mood and affect Const General: No confusion Orientation/consciousness: No confusion Neuro General: No confusion Assessment & Plan Assessment & Plan (1) Gastroenteritis: Code(s): K52.9 - Noninfective gastroenteritis and colitis, unspecified Plan: Patient seen and evaluated. Vitals stable and pt does not have an acute adomen in exam Discussed covid/flu testing but he refused He has only been symptomatic x 2 days withou travel, seafood or eating out hx so stool culture not indicated Discussed zofran for nausea and imodium use OTC for diarrhea Discussed importance of bland diet and increasing fluid hydration He was educated on s/s to monitor for and when to seek PCP/UC or ER for management Discussed PCP follow up Patient and his significant other gave verbal understanding and had no additional questions or concerns at time of discharge Work note provided All questions answered Medications: New ondansetron 4 mg PO Q8H PRN 20 tabs 0RF nausea and vomiting Coding Level of Care Code Est Pt Level 3 (28810) Diagnoses Gastroenteritis K52.9
== END 2025-01-30 09:43 | disposition home or self-care (01) ==
PROVIDERS: PCP Nurse Practitioner Family; Visit Provider Physician Assistant
DX: K52.9 Noninfective gastroenteritis and colitis, unspecified (principal)

== ENCOUNTER → 2025-01-30 09:14 | Outpatient (BNVA) | payer OTHER, SELFPAY | PROVIDERS: PCP Nurse Practitioner Family; Visit Provider Physician Assistant | DX: K52.9 Noninfective gastroenteritis and colitis, unspecified (principal) | CPT/HCPCS: 99212 ==

== ENCOUNTER → 2025-02-08 08:03 | Outpatient (BNVA) | payer OTHER, SELFPAY | PROVIDERS: PCP Nurse Practitioner Family; Visit Provider Internal Medicine | DX: M62.830 Muscle spasm of back (principal) | CPT/HCPCS: 99212 ==

== ENCOUNTER 2025-02-08 08:25 | Outpatient (AMB) | payer OTHER, SELFPAY ==
[2025-02-08 08:27] VITALS: BP 112/68; PULSE 67; RESP 20; O2SAT 99; BMI 30.4
--- NOTE | 2025-02-08 08:27 | AM.OFFWIN_ITS ---
Intake Vital Signs 02/08/25 08:27 Height 5 ft 11 in Weight 218 lb 2 oz BMI 30.4 BP 112/68 Blood Pressure Location Lt brachial Position Sitting Respiration 20 Pulse 67 Pulse Source Pulse Oximeter Pulse Oximetry (%) 99 Oxygen Delivery Method Room Air Intake Visit Reasons: EP Neck pain Intake Note: pt presents with left sided neck pain Patient Tobacco Use Status: Never used Tobacco Allergies codeine Adverse Reaction (Mild, Verified 01/30/25 09:23) Nausea and Vomiting Do you need a note to return to daycare/school/sports/work: Yes HPI HPI Comments History of Present Illness Details History - The patient is a 54-year-old male pres enting with musculoskeletal pain in the neck region. 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 - The patient has not taken any medicati ons for the pain and has not used heat or ice as interventions. - He reports no pain on the actual spine , with tenderness localized to the trapezius muscle. - he would like a work note for today Physical Exam General: cooperative, healthy appearing and comfortable, patient oriented x3 Head: Yes normal to inspection and Yes normocephalic General nose exam: Normal external nose present Face and sinus: Yes normal facial exam Effort & Inspection: normal respiratory effort and able to speak in complete sentences Back/spine: cervical, thoracic and lumbar spine normal to inspection cervical ROM normal, thoracic ROM normal, lumbar ROM normal no Cervical, thoracic or lumbar spine tenderness TTP on bilateral trazpezius with firmness Extremities: full ROM bilateral shoulders PFSH Medical History Screening for colon cancer Dyslipidemia Erectile dysfunction Anxiety Depression Essential hypertension Insomnia ADHD Surgical History History of surgery Family History Father No problems noted. Mother Myocardial infarction Pancreatic cancer Social History Housing: Apartment Alcohol intake: never Patient Tobacco Use Status: Never used Tobacco e-Cigarette/Vaping Use: Never Used service: No Current occupational status: employed Cognitive needs: No Hearing needs: No Vision needs: Yes Review of Systems Const All systems reviewed & are unremarkable except as noted in HPI and below Physical Exam Vital Signs: Last Vital Signs Pulse 67 02/08/25 08:27 Resp 20 02/08/25 08:27 BP 112/68 02/08/25 08:27 Pulse Ox 99 02/08/25 08:27 Oxygen Delivery Method Room Air 02/08/25 08:27 BMI result Body Mass Index 30.4 Assessment & Plan Assessment & Plan (1) Spasm of both trapezius muscles: Code(s): M62.830 - Muscle spasm of back Plan: Plan Patient was informed and verbally consented to the use of an ambient scribe for clinic note documentation during this visit. Musculoskeletal Pain - Prescribed cyclobenzaprine 5 mg, with the option to increase to 10 mg if needed, to be taken at night to help relax muscles. - Prescribed naproxen 500 mg, to be taken twice daily as an anti-inflammatory. - Advised the application of heat to the affected area, especially at the end of the day, to help loosen muscles. - Cautioned against alcohol consumption and driving while taking the muscle relaxer due to potential drowsiness. Medications: New cyclobenzaprine 5 mg PO Q8H PRN 20 tabs 0RF Muscle Spasm naproxen 500 mg PO Q12H PRN 20 tabs 0RF pain Coding Level of Care Code Est Pt Level 3 (73362) Diagnoses Spasm of both trapezius muscles M62.830
== END 2025-02-08 09:08 | disposition home or self-care (01) ==
PROVIDERS: PCP Nurse Practitioner Family; Visit Provider Physician Assistant
DX: M62.830 Muscle spasm of back (principal)

== ENCOUNTER 2025-07-09 08:46 | Outpatient (AMB) | payer OTHER, SELFPAY ==
[2025-07-09 08:52] VITALS: BP 110/48; PULSE 58; TEMP 36.7; O2SAT 94; BMI 30.7
--- NOTE | 2025-07-09 08:52 | AM.OFFWIN_ITS ---
Intake Vital Signs 07/09/25 08:52 Height 5 ft 11 in Weight 220 lb BMI 30.7 BP 110/48 L Blood Pressure Location Lt brachial Position Sitting Pulse 58 Pulse Source Pulse Oximeter Temp 98.1 F Temp Source Oral Pulse Oximetry (%) 94 Oxygen Delivery Method Room Air Intake Visit Reasons: EP Sweats, cough Intake Note: Patient presents c/o cough, sweats x2 days. Patient Tobacco Use Status: Never used Tobacco Allergies codeine Adverse Reaction (Mild, Verified 07/09/25 08:55) Nausea and Vomiting HPI HPI Comments History of Present Illness Details History - The patient is a 55 year old male pres enting with a two-day history of feeling unwell. - He reports symptoms including sweats, sore throat, mild ear pain, headache, and fatigue. - He has noted subjective fever due to s weating like crazy but has not had a productive cough. - Associated symptoms include nasal sunday estion and sinus pain. - His appetite is poor, and he did not e at the day prior to the visit. - He has not taken any hxar-bgw-xsxsnbd medications for his symptoms. - No other household contacts are ill. - He believes he became ill from a recen t job in [place], which he has since quit. - He denies any history of using an inha ler. - He denies CP, SOB, abd pain, or n/v/d. Physical Exam General: Cooperative, healthy appearing, comfortable and no acute distress Orientation/consciousness: Patient oriented x3 Limitations: No limitations Head: Normal to inspection Ears: Hearing grossly normal bilaterally, external ears normal, blood on the earlobe noted, and TM's normal bilaterally Nose: Normal external nose present, normal nares present, and congestion noted. Face and sinus: Sinuses nontender to palpation. Mouth: Normal oral and palatal mucosa present and moist mucous membranes noted. Throat: Tonsils normal. Uvula is midline. Posterior oropharynx with erythema and no exudates. Eyes: Appearance normal, both eyes and all related structures Neck: Normal visual inspection, full ROM. No lymphadenopathy noted. Respiratory: Clear to auscultation bilaterally. Normal respiratory effort, able to speak in complete sentences. No respiratory distress, not tachypneic, no tripod positioning and no use of accessory muscles. Cardiovascular: Regular rate and rhythm. Normal S1 and S2. No m/r/g noted. Skin: No rashes or lesions noted. Patient was informed and verbally consented to the use of an ambient scribe for clinic note documentation during this visit [facility] Medical History (Updated 06/25/25 @ 12:29 by HETAL Chavez) Osteoarthritis of right hand Screening for colon cancer Dyslipidemia Erectile dysfunction Anxiety Depression Essential hypertension Insomnia ADHD Surgical History History of surgery Family History Father No problems noted. Mother Myocardial infarction Pancreatic cancer Social History Housing: Apartment Alcohol intake: never Patient Tobacco Use Status: Never used Tobacco e-Cigarette/Vaping Use: Never Used service: No Current occupational status: employed Cognitive needs: No Hearing needs: No Vision needs: Yes Review of Systems Const All systems reviewed & are unremarkable except as noted in HPI and below Physical Exam Vital Signs: Last Vital Signs Temp 98.1 F 07/09/25 08:52 Pulse 58 07/09/25 08:52 BP 110/48 L 07/09/25 08:52 Pulse Ox 94 07/09/25 08:52 Oxygen Delivery Method Room Air 07/09/25 08:52 BMI result Body Mass Index 30.7 Assessment & Plan Assessment & Plan (1) URI (upper respiratory infection): Code(s): J06.9 - Acute upper respiratory infection, unspecified Qualifiers: URI type: unspecified URI Qualified Code(s): J06.9 - Acute upper respiratory infection, unspecified Plan Most likely Viral Upper Respiratory Infection vs covid vs flu vs RSV plan - An influenza nasal swab was performed, and the specimen was sent to the lab for analysis. - A prescription was electronically sent to [facility] pharmacy for symptomatic relief of congestion. - Supportive care was recommended, including increased fluid intake and use of Tylenol or Motrin as needed for symptoms. - The patient will be contacted by phone with the results of the test. - follow up with PCP Orders: Orders SARS-CoV2/FLU/RSV Today R09.89 - Other specified symptoms and signs involving the circulatory and respiratory systems Medications: New cetirizine-pseudoephedrine 5-120 mg ER 1 tab PO BID 14 tabs 0RF 7 days Coding Level of Care Code Est Pt Level 3 (77228) Diagnoses Upper respiratory tract infection, unspecified type J06.9 URI type: unspecified URI
--- OUTSIDE RECORDS SUMMARY | 2025-07-09 09:10 | XMS_ITS | Continuity of Care Document ---
Author Organization [place] - [facility], TR[facility]HA Garcia [facility] [address]st Floor Address [address] [address] Care Team Providers Care Roadmaster Name Role Phone LU CHAMBERLAIN Primary Care Provider Assessment No assessment recorded. Plan of Treatment Reminders Order Date Submit Date Provider Last Modified By Organization Details Last Modified Time Details Appointments RECHECK 15 2024 08:30A M La Torres CNP Not available Not available Not available Lab None recorded . Referral None recorded . Procedures None recorded . Surgeries None recorded . Imaging None recorded . Medication Orders None recorded . Patient TargetsNo targets recorded. Patient Instructions Encounter Date Encounter Id Patient Instructions Last Modified By Organization Details Last Modified Time 06/04/2025 [id number] [facility] Custom Hand Orthosis Information Sheet [address] [place] [address] Name: Luis Eduardo Saleem Right Diagnosis: Osteoarthritis of the CMC joint Orthosis Code: Finger Hand HFO L 3913 Orthosis Style: Custom molded hand-based CMC alignment restriction orthosis The PURPOSE for this custom orthosis is to: Maintain the alignment of the CMC joint to reduce pain and friction at this joint PRECAUTIONS to consider include: HEAT SOURCES: including, but not limited to, the solutions developer, dryer, stove, furnace, heater, car (on a hot summer day). PETS: they like to chew the plastic. SKIN: watch for redness, blisters or any skin irritations. CLEANING: use warm soapy water, wipes or cake icer and packer to keep the plastic clean, cotton socks and straps can be hand washed. The PLAN is to wear this brace: Nearly full-time for 2 weeks. Removing it for hygiene. Return to the office between weeks 2 and 3 for a remold and to initiate a home program for strengthening and stability of the CMC joint For modifications to this custom piece please contact your hand therapy provider. If you have not been assigned to hand therapy please call this office to be seen for an adjustment. This orthosis is medically necessary for proper and appropriate treatment of the above noted diagnosis. This orthosis has been custom fabricated by: Mattie Pang OTR/L, CHT I understand the purpose, precautions and plan for this custom orthosis Patient Signature: [email or web address] Not available 06/01/2025 11:24:00 Reason for Referral None Reported. Problems Name Problem SNOMED Code Status Onset Date Resolution Date Notes Provider Name and Address Organization Details Recorded Time Pain of right hand 397149486890937 Active 2024 SETH vasquez [facility] 17:10:29 Problem Notes None recorded. Procedures Surgical History Date Name Laterality Status Provider Name and Address Organization Details Recorded Time 5 Small Joint Kenalog Injection, L/R completed Bj Aden PA-C [address], [place], [address], [facility] 06/25/2025 09:27:54 5 JZCMC Inj completed Juan José Childers PA-C [address], [place], [address], [facility] 10/25/2024 17:44:09 Imaging Results None recorded. Procedure Notes None recorded. Medical Equipment None Reported. Allergies Allergen ID Allergen Name Allergen Category Reaction Reaction Severity Criticality Documentation Date Start Date Code Code System Note Provider Name and Address Organization Details Recorded Time 507018 codeine medicatio n Not available Not available Not available 01/11/2024 8380 RxNorm Leónzaribautista vasquez [facility] 09:09:03 Medications Name Sig Start Date Stop Date Status Note LastModified by Organization Details LastModified Time buspirone 5 mg tablet TAKE 1 TABLET BY MOUTH THREE TIMES DAILY active Not Available Not Available No t Available venlafaxine ER 75 mg capsule,ext ended release 24 hr TAKE 1 CAPSULE BY MOUTH EVERY DAY WITH 150 MG CAPSULE active Not Available Not Available No t Available atorvastati n 20 mg tablet TAKE 1 TABLET BY MOUTH AT BEDTIME 10/25 completed Not Available Not Available Not Available ibuprofen 800 mg tablet TAKE 1 TABLET BY MOUTH EVERY 8 HOURS NEEDED FOR POST OP PAIN 10/25 completed Not Available Not Available Not Available valacyclovi r 1 gram tablet TAKE 1 TABLET BY MOUTH 3 TIMES A DAY FOR 7 DAYS 01/10 completed Not Available Not Available Not Available meloxicam 15 mg tablet TAKE 1 TABLET EVERY DAY BY ORAL ROUTE WITH MEAL(S). 10/25 completed Not Available Not Available Not Available sertraline 100 mg tablet TAKE 1 TABLET BY MOUTH ONCE DAILY AFTER 14 DAYS DECREASE TO 1/2 TABLET (50MG) DAILY 10/25 completed Not Available Not Available Not Available venlafaxine ER 150 mg capsule,ext ended release 24 hr TAKE 1 CAPSULE BY MOUTH EVERY DAY WITH 75 MG CAPSULE active Not Available Not Available No t Available meloxicam 7.5 mg tablet TAKE 1 TABLET BY MOUTH EVERY DAY WITH MEALS FOR RIGHT HAND PAIN active Not Available Not Available No t Available amoxicillin 875 mg tablet TAKE 1 TABLET BY MOUTH TWICE A DAY FOR 7 DAYS 10/25 completed Not Available Not Available Not Available trazodone 100 mg tablet TAKE 2 TABLETS BY MOUTH EVERY DAY DIRECTED 01/10 completed Not Available Not Available Not Available venlafaxine 37.5 mg tablet TAKE 1 TABLET BY MOUTH ONCE DAILY FOR FOURTEEN DAYS THEN INCREASE IF TOLERATED TO 1 TABLET TWICE DAILY 10/25 completed Not Available Not Available Not Available trazodone 150 mg tablet TAKE 1 TO 2 TABLETS BY MOUTH AT BEDTIME NEEDED FOR SLEEP active Not Available Not Available No t Available dextroamphe tamine-amph etamine 20 mg tablet TAKE 1 TABLET BY MOUTH TWICE DAILY IN THE MORNING AND THE AFTERNOON active Not Available Not Available No t Available lisinopril 10 mg tablet TAKE 1 TABLET BY MOUTH EVERY DAY active Not Available Not Available No t Available bupropion HCl 75 mg tablet TAKE 1 TABLET BY MOUTH EVERY DAY IN THE MORNING FOR 7 DAYS, THEN STOP active Not Available Not Available No t Available ondansetron 4 mg disintegrat ing tablet DISSOLVE 1 TABLET IN MOUTH EVERY 8 HOURS NEEDED FOR NAUSEA AND VOMITING active Not Available Not Available No t Available dextroamphe tamine-amph etamine 5 mg tablet TAKE 1 TABLET BY MOUTH TWICE DAILY WITH 20 MG TABLET active Not Available Not Available No t Available naproxen 500 mg tablet TAKE 1 TABLET BY MOUTH EVERY TWELVE HOURS NEEDED FOR PAIN active Not Available Not Available No t Available cyclobenzap rine 5 mg tablet TAKE 1 TABLET BY MOUTH EVERY 8 HOURS NEEDED FOR MUSCLE SPASMS 06/25 completed Not Available Not Available Not Available bupropion HCl XL 300 mg 24 hr tablet, extended release TAKE 1 TABLET BY MOUTH EVERY DAY active Not Available Not Available No t Available bupropion HCl XL 150 mg 24 hr tablet, extended release TAKE 1 TABLET BY MOUTH EVERY DAY active Not Available Not Available No t Available tadalafil 10 mg tablet TAKE 1 TABLET BY MOUTH DAILY NEEDED 30 MINUTES BEFORE SEXUAL ACTIVITY. DO NOT EXCEED 1 TABLET PER DAY. active Not Available Not Available No t Available Adderall active Not Available Not Avai lable Not Available diclofenac 1 % topical gel APPLY 2 GRAMS TO THE AFFECTED AREA(S) BY TOPICAL ROUTE 4 TIMES PER DAY 10/25 completed Not Available Not Available Not Available Wegovy 0.25 mg/0.5 mL subcutaneou s pen injector INJECT ONE PEN (=0.25MG) SUBCUTANE OUSLY ONCE A WEEK DIRECTED 10/25 completed Not Available Not Available Not Available Wegovy 0.5 mg/0.5 mL subcutaneou s pen injector INJECT ONE PEN (=0.5MG) SUBCUTANE OUSLY ONCE A WEEK DIRECTED FOR WEEKS 5-8. 10/25 completed Not Available Not Available Not Available Zepbound 10 mg/0.5 mL subcutaneou s pen injector INJECT ONE PEN (=10MG) SUBCUTANE OUSLY ONCE A WEEK DIRECTED 10/25 completed Not Available Not Available Not Available Zepbound 5 mg/0.5 mL subcutaneou s pen injector INJECT 5 MG SUBCUTANE OUSLY EVERY WEEK 10/25 completed Not Available Not Available Not Available Zepbound 15 mg/0.5 mL subcutaneou s pen injector INJECT ONE PEN (=15MG) SUBCUTANE OUSLY ONCE A WEEK DIRECTED active Not Available Not Available No t Available Zepbound 12.5 mg/0.5 mL subcutaneou s pen injector INJECT ONE PEN (=12.5MG) SUBCUTANE OUSLY ONCE A WEEK DIRECTED 10/25 completed Not Available Not Available Not Available Zepbound 7.5 mg/0.5 mL subcutaneou s pen injector INJECT ONE PEN (=7.5MG) SUBCUTANE OUSLY ONCE A WEEK DIRECTED 10/25 completed Not Available Not Available Not Available Vitals None Recorded Social History None recorded. Functional Status None recorded. Mental Status None recorded. Family History Nothing Reported. Medical History No medical history recorded. Past Encounters Encounter ID Performer Location Encounter Start Date Encounter Closed Date Diagnosis/Indication Diagnosis SNOMED-CT Code Diagnosis ICD10 Code Diagnosis IMO Codes Diagnosis Note [id number] Bj Aden PA-C [facility] - [place] [address] [place] [address] 05/28/2025 09:43:45 06/08/2025 08:42:22 Arthropathy of joint of hand [id number] M19.104 [id number] Mattie Pang, OTR/L,CHT [place] - [place] [address] [place] [address] 06/04/2025 09:34:54 06/04/2025 09:57:23 Osteoarthrosis of the carpometacarpal joint of the thumb 56755306 M18.11 [id number] HPI: Patient is a 55-year-ol d diagnosed with right thumb CMC osteoarthr itis. The Patient is referred by Grey Aden PA-C for a custom thermoplas tic CMC joint immobiliza tion orthosis. The purpose, precaution s and plan with the orthosis are discussed with the patient today. The patient understand s that the orthosis will assist to create alignment at the CMC joint, reduce friction and pain and allow for functional use of the hand. The orthosis will be worn with activities nearly radio time buyer for 2 weeks then hr business partner for 2 weeks to improve the functional alignment. Then the brace is worn for the long-term with those activities that need additional support. Today, a hand based thumb immobiliza tion orthosis was fabricated . The purpose, precaution s and plan with this orthosis are reviewed with the patient who agrees to the proposed wear schedule. The patient understand s that this is a custom orthosis made of low temp thermoplas tic. Any modificati ons to the orthosis should be done by a Certified Hand Therapist. The patient may call for an appointmen t with me in this office. Or if the patient is receiving hand therapy , the provider at that clinic may adjust the orthosis as needed. The orthosis fabricated today is the appropriat e style for the diagnosis and informatio n provided. A rigid style orthosis is needed to protect the injury site and maintain alignment of the involved structures . Health Concerns Section Related Observation LastModified by Organization Detai ls LastModified Time None Recorded Concern Status LastModified by Organization Details LastModified Time None Recorded Payers Encounter Date Sequence Insurance Name Policy Number Policy Singleton Covered Member ID Singleton Member ID Guarantor Name 06/04/2025 1 [facility] - HEALTH NET PLAN (MEDICAID HMO) COREY Saleem [id number] Luis Eduardo Saleem Notes Date Note Type Note Provider Name and Address Organization Details Recorded Time 06/04/2025 text/html This is a 55-year-old man diagnosed with osteoarthritis by Grey Solorzano PA-C. And he is referred today for a custom fabricated CMC alignment orthosis Mattie Pang, SYDNEYR/L,CHT [address] [facility] [address], [place], [address], [facility] [place] [facility] 06/04/2025 09:57:19
--- OUTSIDE RECORDS SUMMARY | 2025-07-09 09:10 | XMS_ITS | Continuity of Care Document ---
Author Organization [facility], [facility] - [facility] [address] Address [address] [place] [address] Care Team Providers Care Clerical Transcriber Name Role Phone LU CHAMBERLAIN Primary Care [...] recorded . Patient TargetsNo targets recorded. Patient InstructionsNo instructions recorded. Reason for Referral None Reported. Problems Name Problem SNOMED Code Status Onset Date Resolution Date Notes Provider Name and Address Organization Details Recorded Time Pain of right hand 288616135867243 Active 2024 SETH vasquez [facility] 17:10:29 Problem Notes None recorded. Procedures Surgical History Date Name Laterality Status Provider Name and Address Organization Details Recorded Time 5 Small Joint Kenalog Injection, L/R completed Bj Aden PA-C [address], [place], [address], [facility] 06/25/2025 09:27:54 5 JZCMC Inj completed Juan José Childers PA-C [address], [place], [address], [facility] 10/25/2024 17:44:09 Imaging Results None recorded. Procedure Notes None recorded. Medical Equipment None Reported. Allergies Allergen ID Allergen Name Allergen Category Reaction Reaction Severity Criticality Documentation Date Start Date Code Code System Note Provider Name and Address Organization Details Recorded Time 435116 codeine medicatio n Not available Not available Not available 01/11/2024 3990 RxNorm Cassie vasquez [place] - [place] [facility] 4 09:09:03 Medications Name Sig Start Date Stop [...] Not Available Not Available Not Available Vitals Date Recorded Body height Body mass index (BMI) Body weight Provider Name and Address Organization Details Last Updated DateTime 06/25/2025 177.8 cm 23.5 kg/m2 17787.15 g CARITO FRANKS [place] - [place] [facility] 06/25/2025 09:01:35 Social History None recorded. Functional Status None recorded. Mental Status None recorded. Family History Nothing Reported. Medical History No medical history recorded. Past Encounters Encounter ID Performer Location Encounter Start Date Encounter Closed Date Diagnosis/Indication Diagnosis SNOMED-CT Code Diagnosis ICD10 Code Diagnosis IMO Codes Diagnosis Note [id number] TRACY B[facility] [address] [place] [address] 05/28/2025 09:43:45 06/08/2025 08:42:22 Arthropathy of joint of hand 769422069 M19.591 [id number] ELMER Plunkett/Samir,CHT [place] - [facility] [address] [place] [address] 06/04/2025 09:34:54 06/04/2025 09:57:23 Osteoarthrosis of the carpometacarpal joint of the thumb 45977595 M18.11 [id number] HPI: Patient is a 55-year-ol d diagnosed [...] orthosis will be worn with activities 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 [id number] Mattie Pang, OTR/L,CHT [place] - [place] [address] [place] [address] 06/25/2025 09:23:54 06/25/2025 12:30:16 Osteoarthrosis of the carpometacarpal joint of the thumb 66818999 M18.11 [id number] Bj Aden PA-C [place] - [facility] [address] [place] [place] [address] 06/25/2025 08:45:01 06/25/2025 09:28:27 Pain of right hand [id number] 79323 M79.641 [id number] Osteoarthr osis of the carpometacarpal joint of the thumb 26045017 M18.11 [id number] Health Concerns Section Related Observation LastModified by Organization Detai ls LastModified Time None Recorded Concern Status LastModified by Organization Details LastModified Time None Recorded Payers Encounter Date Sequence Insurance Name Policy Number Policy Singleton Covered Member ID Singleton Member ID Guarantor Name 06/25/2025 1 [facility] - HEALTH NET PLAN (MEDICAID HMO) COREY Saleem [id number] Luis Eduardo Saleem Notes Date Note Type Note Provider Name and Address Organization Details Recorded Time 06/25/2025 text/html This is a 55-year-old man diagnosed with osteoarthritis by Grey Solorzano PA-C. And he had been referred for a custom fabricated CMC alignment orthosis and today presents to the office to check the fit of that as well as be educated with a new stability and strengthening home program. Mattie Pang, OTR/L,T [address] [facility], [place], [address], [facility] - [place] [facility] 06/25/2025 12:30:16
--- OUTSIDE RECORDS SUMMARY | 2025-07-09 09:10 | XMS_ITS | Data Portability ---
Author Organization [facility], [facility] Address [address] [place] [address] Care Team Providers Care Claims Assistant Name Role Phone LU CHAMBERLAIN Primary Care Provider Assessment Encounter Date Assessment Date Assessment LastModified by Organization Details LastModified Time 10/25/2024 10/25/2024 Patient seen und er general supervision of Dr. Brumfield who was available but who did not see the patient. HPI: 54-year-old male seen today regarding right thumb pain. Patient began experiencing difficulty approximately 4-5 weeks ago. 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 Reports pain at the base of the thumb. Has been using medication without significant relief. Denies any falls or trauma. Patient is right-hand dominant. He denies numbness or tingling right upper extremity. Denies history difficulty with the hand prior to this episode. Past family, medical, social history and review of systems has been reviewed, updated and is located in the patient s chart. Examination: 54-year-old male distress alert and oriented. On examination the right hand no ecchymosis or erythema or warmth noted. Patient has full range of motion of the wrist and digits. Tender to palpation at the first CMC joint noted. Positive CMC grind. No triggering of the digits appreciated. Phalen's and Tinel's are negative. Right upper extremity neurovascularly intact. X-rays ordered, obtained and reviewed at [facility] 3 views of right hand reveal moderate CMC arthritis no evidence of acute fracture or dislocation. Impression: Right first CMC arthritis Plan: Treatment options reviewed. This time role of bracing, continue oral medication, corticosteroid injections and surgical intervention for CMC arthroplasty discussed. Patient would like to proceed with an injection which was performed today. Postinjection precautions reviewed. Follow-up on a p.r.n. basis. [facility] speech recognition staffing analyst software was used to create portions of this document. An attempt at proofreading has been made to minimize errors. Please call for corrections. [email or web address] Not available 10/25/2024 17:46:20 05/28/2025 05/28/2025 I am seeing the patient today under the supervision of Dr. Ramirez who was available but who did not see the patient. 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 The base of the right dominant thumb. It seems to write some time ago underwent CMC injection lasted for a few weeks. His pain has recurred. It follows a mayen pinch manager immunology and grasp. Has some complaints referable to his left hip girdle. Past family, medical, social history and review of systems has been reviewed, updated and is located in the patient s chart. Examination: the patient is alert and cooperative in no acute distress. Afebrile, vital signs stable. There is active ROM of the There is prominence of the base of the thumb metacarpal and tenderness at the CMC joint. Negative axial grind test. No tenderness in the first distal compartment. Impression:Early right CMC arthritis Plan:My findings were discussed with the patient. He prefer not to have a repeat injection. I prescribed Mobic 7.5 mg daily with food. Precautions and lateral. A custom molded fabricated CMC splint made with some CMC restorative exercises. He will recheck with me. Is also made of appointment with a provider to assess his hip and knee Not available 05/28/2025 10:39:49 06/25/2025 06/25/2025 I am seeing the patient today under the supervision of Dr. Ramirez who was available but who did not see the patient. HPI: 55-year-old male seen previously by me with a history of right CMC arthritis of the thumb. Treated with a Orthoplast splint. Continues to have pain with keeping her progress. He has also had chronic pain in his right hip girdle. Past family, medical, social history and review of systems has been reviewed, updated and is located in the patient s chart. Examination: the patient is alert and cooperative in no acute distress. Afebrile, vital signs stable. There is active ROM of the wrist and digits. There is slight prominence of the base of the thumb metacarpal proximally. There is tenderness in the CMC joint. Intact range of motion of the thumb across the palm. Circulation, sensation intact distally Impression: Thumb CMC arthritis Plan:. Today at the patient's request, using sterile technique with informed consent. Injection of 0.1. Marcaine 0.4 Kenalog injected her right thumb CMC joint. I have his splint adjusted for comfort. He has an appointment for evaluation of his hip pain Not available 06/25/2025 09:27:09 Plan of Treatment Reminders Order Date Submit Date Provider Last Modified By Organization Details Last Modified Time Details Appointments RECHECK 15 2024 08:30A Luis Torres CNP Not available Not available Not available Lab None recorded . Referral None recorded . Procedures None recorded . Surgeries None recorded . Imaging XR, hand, 3 or more view - 119 3V [facility] [address], [facility] [address], [address], 11/06/2024 07:26:56 Medication Orders meloxica m 7.5 mg tablet [email or web address] [facility], [address] [place] [address], [phone], 06/25/2025 10:54:09 Patient TargetsNo targets recorded. Patient InstructionsNo instructions recorded. Reason for Referral None Reported. Results Created Date Observation Date Name Description Value Unit Range Abnormal Flag Note LastModifiedBy Organization Detail LastModifiedTime 10/26/1910/25/2024 XR, hand, 3 or more view http:/ [email or web address] ?Encry pted=s hAaTro YD8dLq bEUv6g %2BXZw aYqtaq 0bqfl% 2Fg9IQ a4ajBk vP9nXo QUaueC m3YtLR FvZlgJ JJ8mAn HZtai3 6y2362 AC0KqY 3mDVqK lKiQtr MwF INTERFACE [facility] [address] [facility] [address], [place], [address], 10/25/2024 17:18:31 10/26/19 25 10/25/2024 XR, hand, 3 or more view http:/ [email or web address] ?Encry pted=s hAaTro YD8dLq bEUv6g %2BXZw aYqtaq 0bqfl% 2Fg9IQ a4ajBk vP9nXo QUaueC m3YtLR FvZlgJ JJ8mAn HZtai3 6h5436 AC0KqY 3mDVqK lKiQtr MwF INTERFACE [facility] [address] [facility] [address], [place], [address], 10/25/2024 17:18:33 Result Notes Documentation Provider Name and Address Organization Details Recorded Time Xr, Hand, 3 Or More View : [email or web address] Encrypted=iaZqPadMA2dZoqQ Uv6g%9NEUcmKbflg9zwra%2Fg 6AHe8gyPqbM0aXsEJlcuYg7Va WGVfSkjHIJ6yUmBKosa42m295 8ID1MmB7cNIgYwVvGrlLgN Not Available [facility] 10/25/2024 17:18: 31 Xr, Hand, 3 Or More View : [email or web address] Encrypted=zjTwRvlEI2ePerH Uv6g%7DDVudGvyrw5axel%2Fg 2NHe3vjOciM3eQjHUoqrFo5Ft POHfNqbYHT6sDiIRnjk98l168 9FP2DvT3qWYgRpKoVhuMdA Not Available [facility] 10/25/2024 17:18: 33 Problems Name Problem SNOMED Code Status Onset Date Resolution Date Notes Provider Name and Address Organization Details Recorded Time Pain of right hand 036491981549396 Active 2024 SETHMARISA vasquez [place] - [facility] 17:10:29 Problem Notes None recorded. Procedures Surgical History Date Name Laterality Status Provider Name and Address Organization Details Recorded Time 5 Small Joint Kenalog Injection, L/R completed Bj Aden PA-C [address], [place], [address], [facility] 06/25/2025 09:27:54 5 JZCMC Inj completed Juan José Childers PA-C [address], [place], [address], [facility] 10/25/2024 17:44:09 Imaging Results None recorded. Procedure Notes None recorded. Medical Equipment None Reported. Allergies Allergen ID Allergen Name Allergen Category Reaction Reaction Severity Criticality Documentation Date Start Date Code Code System Note Provider Name and Address Organization Details Recorded Time 042089 codeine medicatio n Not available Not available Not available 01/11/2024 2670 RxNorm Cassie Patterson [facility] 09:09:03 Medications Name Sig Start Date Stop [...] and Address Organization Details Last Updated DateTime 10/25/2024 177.8 cm 38 kg/m2 689735.98 g SETH MORALES [place] - [facility] 10/25/2024 17:07:34 Date Recorded Body height Body mass index (BMI) Body weight Provider Name and Address Organization Details Last Updated DateTime 05/28/2025 177.8 cm 38 kg/m2 779488.98 g Becky Angel [facility] 05/28/2025 09:53:00 Date Recorded Body height Body mass index (BMI) Body weight Provider Name and Address Organization Details Last Updated DateTime 06/25/2025 177.8 cm 23.5 kg/m2 06802.15 g CARITO FRANKS [facility] 06/25/2025 09:01:35 Social History None recorded. Functional Status None recorded. Mental Status None recorded. Family History Nothing Reported. Medical History No medical history recorded. Past Encounters Encounter ID Performer Location Encounter Start Date Encounter Closed Date Diagnosis/Indication Diagnosis SNOMED-CT Code Diagnosis ICD10 Code Diagnosis IMO Codes Diagnosis Note [id number] [facility] [address] [place] [address] 12/06/2023 10:11:47 12/27/2023 11:45:12 Foot pain 22799765 M79.671 M79.672 Tibialis p osterior tendinitis 228952783 M76.829 Acquired b ilateral pes planus 2406352715 5597579 M21.41 M21.42 [id number] Cari Saavedra PA-C [facility] [address] [place] [address] 01/11/2024 08:49:52 02/08/2024 09:19:44 Pain of bilateral hip joints 0577638550 8226772 M25.551 M25.552 Lumbar radiculopathy 128 922290 M54.16 Degenerati on of lumbar intervertebral disc 93627847 M51.36 [id number] TRACY [place] - [place] [address] [place] [address] 10/25/2024 16:53:36 11/06/2024 07:26:55 Pain of right hand 5825377149 50001 M79.641 947542 Osteoarthr osis of the carpometacarpal joint of the thumb 04407463 M18.11 2110052 [id number] TR[facility] - [place] [address] [place] [address] 05/28/2025 09:43:45 06/08/2025 08:42:22 Arthropathy of joint of hand 250354699 M19.701 [id number] Mattie Pang OTR/L,Noah [facility] - [facility] [address] [place] [address] 06/04/2025 09:34:54 06/04/2025 09:57:23 Osteoarthrosis of the carpometacarpal joint of the thumb 92949932 M18.11 [id number] HPI: Patient is a 55-year-ol d diagnosed [...] orthosis will be worn with activities nearly multimedia developer for 2 weeks then wholesale parts salesperson for 2 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 [id number] Mattie Pang, SYDNEYR/L,Noah [facility] - [place] [address] [place] [address] 06/25/2025 09:23:54 06/25/2025 12:30:16 Osteoarthrosis of the carpometacarpal joint of the thumb 13821428 M18.11 [id number] Bj Aden PA-C [facility] - [place] [address] [address] 06/25/2025 08:45:01 06/25/2025 09:28:27 Pain of right hand 6155064553 76842 M79.641 800681 Osteoarthr osis of the carpometacarpal joint of the thumb 74080165 M18.11 [id number] Health Concerns Section Related Observation LastModified by Organization Detai ls LastModified Time None Recorded Concern Status LastModified by Organization Details LastModified Time None Recorded Advance Directives Directive None Recorded Payers Insurance Date Sequence Insurance Name Policy Number Policy Singleton Covered Member ID Singleton Member ID Guarantor Name 07/06/2025 1 [facility] - HEALTH NET PLAN (MEDICAID HMO) COREY Saleem [id number] Luis Eduardo Saleem Notes Date Note Type Note Provider Name and Address Organization Details Recorded Time 06/04/2025 text/html This is a 55-year-old man diagnosed with osteoarthritis by Grey Solorzano PA-C. And he is referred today for a custom fabricated CMC alignment orthosis Mattie Pang, SYDNEYR/L,CHT [address], [place], [address], [facility] 06/04/2025 09:57:19 06/25/2025 text/html This is a 55-year-old man diagnosed with osteoarthritis by Grey Sloorzano PA-C. And he had been referred for a custom fabricated CMC alignment orthosis and today presents to the office to check the fit of that as well as be educated with a new stability and strengthening home program. Mattie Pang, OTR/L,CHT [address], [place], [address], [facility] 06/25/2025 12:30:16
--- OUTSIDE RECORDS SUMMARY | 2025-07-09 09:11 | XMS_ITS | Continuity of Care Document ---
Author Organization [place] - [facility], [facility] [address] Address [address] [place] [address] Care Team Providers Care Weapons Officer Naval Activity Name Role Phone LU CHAMBERLAIN Primary Care Provider Assessment Encounter Date Assessment Date Assessment LastModified by Organization Details LastModified Time 05/28/2025 05/28/2025 I am seeing the patient [...] has recurred. It follows a mayen pinch cardiothoracic physiotherapist and grasp. Has some complaints referable to [...] No tenderness in the first distal compartment. Impression:Ear ly right CMC arthritis Plan:My findings were discussed with the patient. He prefer not to have a repeat injection. I prescribed Mobic 7.5 mg daily with food. Precautions and lateral. A custom molded fabricated CMC splint made with some CMC restorative exercises. He will recheck with me. Is also made of appointment with a provider to assess his hip and knee [email or web address] Not available 05/28/2025 10:39:49 Plan of Treatment Reminders Order Date Submit Date Provider Last Modified By Organization Details Last Modified Time Details Appointments RECHECK 15 2024 08:30A M La Torres, CORD CUTTER Not available Not available Not available Lab [...] Details Recorded Time Pain of right hand 872095647528208 Active 2024 SETH vasquez [facility] 17:10:29 Problem Notes None recorded. Procedures Surgical History Date Name Laterality Status Provider Name and Address Organization Details Recorded Time 5 Small Joint Kenalog Injection, L/R completed Bj Aden PA-C [address], [place], [address], [facility] 06/25/2025 09:27:54 5 JZCMC Inj completed Juan José Childers PA-C [address], [place], [address], [facility] 10/25/2024 17:44:09 Imaging Results None recorded. Procedure Notes None recorded. Medical Equipment None Reported. Allergies Allergen ID Allergen Name Allergen Category Reaction Reaction Severity Criticality Documentation Date Start Date Code Code System Note Provider Name and Address Organization Details Recorded Time 039157 codeine medicatio n Not available Not available Not available 01/11/2024 2670 RxNorm Cassie vasquez [facility] 4 09:09:03 Medications Name Sig [...] Updated DateTime 05/28/2025 177.8 cm 38 kg/m2 240237.98 g Becky Angel [place] - [facility] 05/28/2025 09:53:00 Social History None recorded. Functional Status None recorded. Mental Status None recorded. Family History Nothing Reported. Medical History No medical history recorded. Past Encounters Encounter ID Performer Location Encounter Start Date Encounter Closed Date Diagnosis/Indication Diagnosis SNOMED-CT Code Diagnosis ICD10 Code Diagnosis IMO Codes Diagnosis Note [id number] [facility] [address] [place] [address] 05/28/2025 09:43:45 06/08/2025 08:42:22 Arthropathy of joint of hand 357747577 M19.459 [id number] Health Concerns Section Related Observation LastModified by Organization Detai ls LastModified Time None Recorded Concern Status LastModified by Organization Details LastModified Time None Recorded Payers Encounter Date Sequence Insurance Name Policy Number Policy Singleton Covered Member ID Singleton Member ID Guarantor Name 05/28/2025 1 [facility] - HEALTH NET PLAN (MEDICAID HMO) COREY Saleem [id number] Luis Eduardo Saleem
== END 2025-07-09 10:02 | disposition home or self-care (01) ==
PROVIDERS: PCP Nurse Practitioner Family; Visit Provider Physician Assistant Medical
DX: J06.9 Acute upper respiratory infection, unspecified (principal)

== ENCOUNTER 2025-07-09 08:46 | Outpatient (REF) | payer OTHER, SELFPAY ==
--- OUTSIDE RECORDS SUMMARY | 2025-07-09 11:43 | XMS_ITS | Continuity of Care Document ---
Author Organization [place] - [facility], [facility] [address] Address [address] [place] [address] Care Team Providers Care Acrobatic Rigger Name Role Phone LU CHAMBERLAIN Primary Care Provider Assessment Encounter Date Assessment Date Assessment LastModified by Organization Details LastModified Time 06/25/2025 06/25/2025 I am seeing the patient [...] appointment for evaluation of his hip pain [email or web address] Not available 06/25/2025 09:27:09 Plan of Treatment Reminders Order Date Submit Date Provider Last Modified By Organization Details Last Modified Time Details Appointments RECHECK 15 2024 08:30A Luis Torres, FASHION COORDINATOR Not available Not available Not available Lab None recorded. Referral None recorded. Procedures None recorded. Surgeries None recorded. Imaging None recorded. Medication Orders meloxicam 7.5 mg tablet 2024 025 [email or web address] [facility], [address], [place], [id number], 06/25/2025 10:54:09 Patient TargetsNo targets recorded. Patient InstructionsNo instructions recorded. Reason for Referral None Reported. Problems Name Problem SNOMED Code Status Onset Date Resolution Date Notes Provider Name and Address Organization Details Recorded Time Pain of right hand 700464309772435 Active 2024 SETH vasquez [facility] 5 17:10:29 Problem Notes None recorded. Procedures Surgical History Date Name Laterality Status Provider Name and Address Organization Details Recorded Time 5 Small Joint Kenalog Injection, L/R completed Bj Aden PA-C [address], [place], [address], [facility] 06/25/2025 09:27:54 5 JZCMC Inj completed Juan José Childers PA-C [address], [place], [address], [facility] 10/25/2024 17:44:09 Imaging Results None recorded. Procedure Notes None recorded. Medical Equipment None Reported. Allergies Allergen ID Allergen Name Allergen Category Reaction Reaction Severity Criticality Documentation Date Start Date Code Code System Note Provider Name and Address Organization Details Recorded Time 408689 codeine medicatio n Not available Not available Not available 01/11/2024 2670 RxNorm Dezaribautista vasquez [facility] 09:09:03 Medications Name Sig Start Date [...] (=12.5MG) SUBCUTANE OUSLY ONCE A WEEK DIRECTED 04/09 /2025 completed Not Available Not Available Not Available Zepbound 7.5 mg/0.5 mL subcutaneou s pen injector INJECT ONE PEN (=7.5MG) SUBCUTANE OUSLY ONCE A WEEK DIRECTED 10/25 completed Not Available Not Available Not Available Vitals Date Recorded Body height Body mass index (BMI) Body weight Provider Name and Address Organization Details Last Updated DateTime 06/25/2025 177.8 cm 23.5 kg/m2 30871.15 g CARITO FRANKS [place] - [place] [facility] 06/25/2025 09:01:35 Social History None recorded. Functional Status None recorded. Mental Status None recorded. Family History Nothing Reported. Medical History No medical history recorded. Past Encounters Encounter ID Performer Location Encounter Start Date Encounter Closed Date Diagnosis/Indication Diagnosis SNOMED-CT Code Diagnosis ICD10 Code Diagnosis IMO Codes Diagnosis Note [id number] Bj Aden PA-C [facility] [address] [place] [address] 05/28/2025 09:43:45 06/08/2025 08:42:22 Arthropathy of joint of hand 072553096 M19.765 8006546 [id number] Mattie Pang, OTR/L,CHT [facility] [place] [address] [place] [address] 06/04/2025 09:34:54 06/04/2025 09:57:23 Osteoarthrosis of the carpometacarpal joint of the thumb 73193486 M18.11 [id number] HPI: Patient is a 55-year-ol d diagnosed [...] orthosis will be worn with activities nearly time buyer for 2 weeks then parts interpreter for 2 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 [id number] Mattie Pang, OTR/L,CHT [facility] [place] [address] [place] [address] 06/25/2025 09:23:54 06/25/2025 12:30:16 Osteoarthrosis of the carpometacarpal joint of the thumb 05386307 M18.11 [id number] [id number] Bj Aden PA-C [facility] [place] [address] [place] [address] 06/25/2025 08:45:01 06/25/2025 09:28:27 Pain of right hand 8626982072 47887 M79.641 172141 Osteoarthr osis of the carpometacarpal joint of the thumb 74387555 M18.11 [id number] Health Concerns Section Related Observation LastModified by Organization Detai ls LastModified Time None Recorded Concern Status LastModified by Organization Details LastModified Time None Recorded Payers Encounter Date Sequence Insurance Name Policy Number Policy Singleton Covered Member ID Singleton Member ID Guarantor Name 06/25/2025 1 [facility] - HEALTH NET PLAN (MEDICAID HMO) COREY Saleem [id number] Luis Eduardo Saleem Notes Date Note Type [...] strengthening home program. Mattie Pang, OTR/L,CHT [address] [facility] [address], [place], [address], [facility] - [place] [facility] 06/25/2025 12:30:16
--- OUTSIDE RECORDS SUMMARY | 2025-07-09 11:43 | XMS_ITS | Continuity of Care Document ---
Author Organization [facility], [facility] - [facility] 1st Floor Address [address] [place] [address] Care Team Providers Care Funeral Driver Name Role Phone LU CHAMBERLAIN Primary Care [...] Details Recorded Time Pain of right hand 569528975027615 Active 2024 SETH vasquez [facility] 17:10:29 Problem Notes None recorded. Procedures Surgical History Date Name Laterality Status Provider Name and Address Organization Details Recorded Time 5 Small Joint Kenalog Injection, L/R completed Bj Aden PA-C [address], [place], [address], [facility] 06/25/2025 09:27:54 5 JZCMC Inj completed Juan José Childers PA-C [address], [place], [address], [facility] 10/25/2024 17:44:09 Imaging Results None recorded. Procedure Notes None recorded. Medical Equipment None Reported. Allergies Allergen ID Allergen Name Allergen Category Reaction Reaction Severity Criticality Documentation Date Start Date Code Code System Note Provider Name and Address Organization Details Recorded Time 948923 codeine medicatio n Not available Not available Not available 01/11/2024 3070 RxNorm Cassie vasquez [place] - [facility] 4 09:09:03 Medications Name Sig [...] Updated DateTime 06/25/2025 177.8 cm 23.5 kg/m2 25750.15 g CARITO FRANKS [place] - [facility] 06/25/2025 09:01:35 Social History None recorded. Functional Status None recorded. Mental Status None recorded. Family History Nothing Reported. Medical History No medical history recorded. Past Encounters Encounter ID Performer Location Encounter Start Date Encounter Closed Date Diagnosis/Indication Diagnosis SNOMED-CT Code Diagnosis ICD10 Code Diagnosis IMO Codes Diagnosis Note [id number] TRACY [facility] [place] 1st [address] [place] [address] 05/28/2025 09:43:45 06/08/2025 08:42:22 Arthropathy of joint of hand 147031132 M19.969 [id number] ELMER Plunkett/Samir,CHT [place] - [facility] [address] [place] [address] 06/04/2025 09:34:54 06/04/2025 09:57:23 Osteoarthrosis of the carpometacarpal joint of the thumb 43146134 M18.11 [id number] HPI: Patient is a 55-year-ol d diagnosed [...] orthosis will be worn with activities nearly interactive multimedia designer for 2 weeks then parts counter specialist for 2 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 [id number] Mattie Pang, OTR/L,CHT [place] - [facility] [address] [place] [address] 06/25/2025 09:23:54 06/25/2025 12:30:16 Osteoarthrosis of the carpometacarpal joint of the thumb 97926375 M18.11 [id number] Bj Aden PA-C [place] - [facility] [address] [place] [address] 06/25/2025 08:45:01 06/25/2025 09:28:27 Pain of right hand 6675388867 15762 M79.641 278114 Osteoarthr osis of the carpometacarpal joint of the thumb 22297876 M18.11 [id number] Health Concerns Section Related Observation LastModified by Organization Detai ls LastModified Time None Recorded Concern Status LastModified by Organization Details LastModified Time None Recorded Payers Encounter Date Sequence Insurance Name Policy Number Policy Singleton Covered Member ID Singleton Member ID Guarantor Name 06/25/2025 1 [facility] - HEALTH NET PLAN (MEDICAID HMO) COREY Saleem [id number] Luis Eduardo Saleem Notes Date Note Type [...] strengthening home program. Mattie Pang, OTR/L,T [address] [facility], [place], [address], [facility] - [facility] 06/25/2025 12:30:16
--- OUTSIDE RECORDS SUMMARY | 2025-07-09 11:43 | XMS_ITS | Continuity of Care Document ---
Author Organization [place] - [facility], TRISHA Sudha 1st Floor Address [address] [place] [address] Care Team Providers Care Financial Sales Advisor Name Role Phone LU CHAMBERLAIN Primary Care [...] has recurred. 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 Has some complaints referable to [...] RECHECK 15 2024 08:30A M La Torres, FARE COLLECTOR Not available Not available Not available Lab [...] Details Recorded Time Pain of right hand 240229488267139 Active 2024 SETH vasquez [facility] 17:10:29 Problem Notes None recorded. Procedures Surgical History Date Name Laterality Status Provider Name and Address Organization Details Recorded Time 5 Small Joint Kenalog Injection, L/R completed Bj Aden PA-C [address], [place], [address], [facility] 06/25/2025 09:27:54 5 JZCMC Inj completed Juan José Childers PA-C [address], [place], [address], [facility] 10/25/2024 17:44:09 Imaging Results None recorded. Procedure Notes None recorded. Medical Equipment None Reported. Allergies Allergen ID Allergen Name Allergen Category Reaction Reaction Severity Criticality Documentation Date Start Date Code Code System Note Provider Name and Address Organization Details Recorded Time 228331 codeine medicatio n Not available Not available Not available 01/11/2024 2670 RxNorm Cassie vasquez [facility] 4 09:09:03 Medications Name Sig Start Date [...] Updated DateTime 05/28/2025 177.8 cm 38 kg/m2 970315.98 g Becky Angel [place] - [place] [facility] 05/28/2025 09:53:00 Social History None recorded. Functional Status None recorded. Mental Status None recorded. Family History Nothing Reported. Medical History No medical history recorded. Past Encounters Encounter ID Performer Location Encounter Start Date Encounter Closed Date Diagnosis/Indication Diagnosis SNOMED-CT Code Diagnosis ICD10 Code Diagnosis IMO Codes Diagnosis Note [id number] TRACY Briceno 1st [address] [place] [address] 05/28/2025 09:43:45 06/08/2025 08:42:22 Arthropathy of joint of hand 243820072 M19.560 [id number] Health Concerns Section Related Observation LastModified by Organization Detai ls LastModified Time None Recorded Concern Status LastModified by Organization Details LastModified Time None Recorded Payers Encounter Date Sequence Insurance Name Policy Number Policy Singleton Covered Member ID Singleton Member ID Guarantor Name 05/28/2025 1 [facility] - HEALTH NET PLAN (MEDICAID HMO) COREY Saleem [id number] Luis Eduardo Saleem
--- OUTSIDE RECORDS SUMMARY | 2025-07-09 11:43 | XMS_ITS | Continuity of Care Document ---
Author Organization [place] - [facility], TRISHA Garcia [facility] 1st Floor Address [address] [place] [address] Care Team Providers Care Clinic Receptionist Name Role Phone LU CHAMBERLAIN Primary Care Provider [phone] Assessment No assessment recorded. Plan of Treatment [...] By Organization Details Last Modified Time 06/04/2025 [id number] [facility] Custom Hand Orthosis Information Sheet [address] 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 PETS: they like to chew the plastic. SKIN: watch for redness, blisters or any skin irritations. CLEANING: use warm soapy water, wipes or accounting support specialist to keep the plastic clean, cotton socks [...] plan for this custom orthosis Patient Signature: Not available 06/01/2025 11:24:00 Reason for Referral None Reported. Problems Name Problem SNOMED Code Status Onset Date Resolution Date Notes Provider Name and Address Organization Details Recorded Time Pain of right hand 410786333555348 Active 2024 SETH vasquez [facility] 17:10:29 Problem Notes None recorded. Procedures Surgical History Date Name Laterality Status Provider Name and Address Organization Details Recorded Time 5 Small Joint Kenalog Injection, L/R completed Bj Aden PA-C [address], [place], [address], [facility] 06/25/2025 09:27:54 5 JZCMC Inj completed Juan José Childers PA-C [address], [place], [address], [facility] 10/25/2024 17:44:09 Imaging Results None recorded. Procedure Notes None recorded. Medical Equipment None Reported. Allergies Allergen ID Allergen Name Allergen Category Reaction Reaction Severity Criticality Documentation Date Start Date Code Code System Note Provider Name and Address Organization Details Recorded Time 545678 codeine medicatio n Not available Not available Not available 01/11/2024 2570 RxNorm Leónzaribautista vasquez [facility] 09:09:03 Medications Name Sig Start Date [...] ICD10 Code Diagnosis IMO Codes Diagnosis Note [id number] Bj Aden PA-C [place] - [facility] [address] [place] [address] 05/28/2025 09:43:45 06/08/2025 08:42:22 Arthropathy of joint of hand 094993614 M19.006 [id number] Mattie Pang, OTR/L,CHT [place] - [facility] [address] [place] [address] 06/04/2025 09:34:54 06/04/2025 09:57:23 Osteoarthrosis of the carpometacarpal joint of the thumb 02649363 M18.11 [id number] HPI: Patient is a 55-year-ol d diagnosed [...] orthosis will be worn with 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 And he is referred today for a custom fabricated CMC alignment orthosis Mattie Pang, SYDNEYR/L,CHT [address] [facility] [address], [place], [address], [facility] 06/04/2025 09:57:19
--- OUTSIDE RECORDS SUMMARY | 2025-07-09 11:43 | XMS_ITS | Data Portability ---
Author Organization [facility], [facility] Address [address] [place] [address] Care Team Providers Care Wrapping Machine Tender Name Role Phone LU CHAMBERLAIN Primary Care [...] intact. X-rays ordered, obtained and reviewed at [facility] 3 views of right hand reveal moderate CMC arthritis no evidence of acute fracture or dislocation. Impression: Right first CMC arthritis Plan: Treatment options reviewed. This time role of bracing, continue oral medication, corticosteroid injections and surgical intervention for CMC arthroplasty discussed. Patient would like to proceed with an injection which was performed today. Postinjection precautions reviewed. Follow-up on a p.r.n. basis. [facility] speech recognition telecom specialist software was used to create portions of [...] has recurred. 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 Has some complaints referable to [...] - 119 3V [facility] [address] [facility] [address], [facility] [address], [place], [address], 11/06/2024 07:26:56 Medication Orders meloxica m 7.5 mg tablet [address] [facility], [address] [place] [address], [phone], 06/25/2025 10:54:09 Patient TargetsNo targets recorded. Patient InstructionsNo instructions recorded. Reason for Referral None Reported. Results Created Date Observation Date Name Description Value Unit Range Abnormal Flag Note LastModifiedBy Organization Detail LastModifiedTime 10/26/1910/25/2024 XR, hand, 3 or more view http:/ [email or web address] ?Encry pted=s hAaTro YD8dLq bEUv6g %2BXZw aYqtaq 0bqfl% 2Fg9IQ a4ajBk vP9nXo QUaueC m3YtLR FvZlgJ JJ8mAn HZtai3 9a4879 AC0KqY 3mDVqK lKiQtr MwF INTERFACE [facility] [address] [facility] [address], [place], [address], 10/25/2024 17:18:31 10/26/19 25 10/25/2024 XR, hand, 3 or more view http:/ [email or web address] ?Encry pted=s hAaTro YD8dLq bEUv6g %2BXZw aYqtaq 0bqfl% 2Fg9IQ a4ajBk vP9nXo QUaueC m3YtLR FvZlgJ JJ8mAn HZtai3 3o8784 AC0KqY 3mDVqK lKiQtr MwF INTERFACE [facility] [address] [facility] [address], [place], [address], 10/25/2024 17:18:33 Result Notes Documentation Provider Name and Address Organization Details Recorded Time Xr, Hand, 3 Or More View : [email or web address]? Encrypted=wwSqCjiRW2mDpgG Uv6g%0VSPrlQgdrr3ttcm%2Fg 0WQg8chWehW5gPiBTqsaQk5Dn VUDnRrtHOQ8cNqEFksd09o762 4WD2MrP5nKJxAwKoUorSwI Not Available [facility] 10/25/2024 17:18: 31 Xr, Hand, 3 Or More View : [email or web address] Encrypted=hnCnVmfRL5gKdxU Uv6g%8KMGwaMplqh8jbec%2Fg 0CNz1qkIelS2yIjRWfrcEo4Cb WNGnVmzEYS2pSaAAhqv80w602 5XE9GcI6oNNuDyCeJqdZsP Not Available [facility] 10/25/2024 17:18: 33 Problems Name Problem SNOMED Code Status Onset Date Resolution Date Notes Provider Name and Address Organization Details Recorded Time Pain of right hand 159928860725983 Active 2024 SETHMARISA vasquez [place] - [facility] 17:10:29 Problem Notes None recorded. Procedures Surgical History Date Name Laterality Status Provider Name and Address Organization Details Recorded Time 5 Small Joint Kenalog Injection, L/R completed Bj Aden PA-C [address], [place], [address], [facility] 06/25/2025 09:27:54 5 JZCMC Inj completed Juan José Childers PA-C [address], [place], [address], [facility] 10/25/2024 17:44:09 Imaging Results None recorded. Procedure Notes None recorded. Medical Equipment None Reported. Allergies Allergen ID Allergen Name Allergen Category Reaction Reaction Severity Criticality Documentation Date Start Date Code Code System Note Provider Name and Address Organization Details Recorded Time 407067 codeine medicatio n Not available Not available Not available 01/11/2024 2670 RxNorm Cassie Patterson [facility] 09:09:03 Medications Name Sig Start Date [...] Updated DateTime 10/25/2024 177.8 cm 38 kg/m2 586133.98 g SETH MORALES [place] - [facility] 10/25/2024 17:07:34 Date Recorded Body height Body mass index (BMI) Body weight Provider Name and Address Organization Details Last Updated DateTime 05/28/2025 177.8 cm 38 kg/m2 942615.98 g Becky Angel [facility] 05/28/2025 09:53:00 Date Recorded Body height Body mass index (BMI) Body weight Provider Name and Address Organization Details Last Updated DateTime 06/25/2025 177.8 cm 23.5 kg/m2 90023.15 g CARITO FRANKS [facility] 06/25/2025 09:01:35 Social History None recorded. Functional Status None recorded. Mental Status None recorded. Family History Nothing Reported. Medical History No medical history recorded. Past Encounters Encounter ID Performer Location Encounter Start Date Encounter Closed Date Diagnosis/Indication Diagnosis SNOMED-CT Code Diagnosis ICD10 Code Diagnosis IMO Codes Diagnosis Note [id number] TRACY Briceno [address] [place] [address] 12/06/2023 10:11:47 12/27/2023 11:45:12 Foot pain 95078655 M79.671 M79.672 Tibialis p osterior tendinitis 785342847 M76.829 Acquired b ilateral pes planus 5005012729 2061950 M21.41 M21.42 [id number] Cari Saavedra PA-C [facility] [address] [place] [address] 01/11/2024 08:49:52 02/08/2024 09:19:44 Pain of bilateral hip joints 6664893511 8174989 M25.551 M25.552 Lumbar radiculopathy 128 081598 M54.16 Degenerati on of lumbar intervertebral disc 76896326 M51.36 [id number] TRACY Dalton - [place] [address] [place] [address] 10/25/2024 16:53:36 11/06/2024 07:26:55 Pain of right hand 0701870604 60636 M79.641 421908 Osteoarthr osis of the carpometacarpal joint of the thumb 41606457 M18.11 1706959 [id number] TRACY [facility]riceno - [place] [address] [place] [address] 05/28/2025 09:43:45 06/08/2025 08:42:22 Arthropathy of joint of hand 286182593 M19.431 [id number] Mattie Pang OTR/L,Noah [place]IS[place] - [place] [address] [place] [address] 06/04/2025 09:34:54 06/04/2025 09:57:23 Osteoarthrosis of the carpometacarpal joint of the thumb 04609200 M18.11 [id number] HPI: Patient is a 55-year-ol d diagnosed [...] will be worn with 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 [id number] Mattie Pang, SYDNEYR/L,Noah [place] - [place] [address] [place] [address] 06/25/2025 09:23:54 06/25/2025 12:30:16 Osteoarthrosis of the carpometacarpal joint of the thumb 39216890 M18.11 [id number] Bj Aden PA-C [place] - [place] [address] [place] [address] 06/25/2025 08:45:01 06/25/2025 09:28:27 Pain of right hand 3969784258 13343 M79.641 459168 Osteoarthr osis of the carpometacarpal joint of the thumb 30672622 M18.11 [id number] Health Concerns Section Related Observation LastModified by Organization Detai ls LastModified Time None Recorded Concern Status LastModified by Organization Details LastModified Time None Recorded Advance Directives Directive None Recorded Payers Insurance Date Sequence Insurance Name Policy Number Policy Singleton Covered Member ID Singleton Member ID Guarantor Name 07/06/2025 1 [facility] - HEALTH NET PLAN (MEDICAID HMO) COREY Saleem [id number] Luis Eduardo Saleem Notes Date Note Type Note Provider Name and Address Organization Details Recorded Time 06/04/2025 text/html This is a 55-year-old man diagnosed with osteoarthritis by Grey Solorzano PA-C. And he is referred today for a custom fabricated CMC alignment orthosis Mattie Pang, SYDNEYR/L,CHT [address], [place], [address], [facility] 06/04/2025 09:57:19 06/25/2025 text/html [...] Pang, OTR/L,CHT [address], [place], [address], [facility] 06/25/2025 12:30:16
[2025-07-09 14:35] LABS: Resp Syncy Virus RNA Qual PCR NEGATIVE (Negative); SARS COV2 PCR INHOUSE NEGATIVE (Negative)
== END 2025-07-09 08:47 | disposition home or self-care (01) ==
LOC: HO.LAB 08:46
PROVIDERS: Physician Assistant Medical; PCP Nurse Practitioner Family
DX: R53.83 Other fatigue (principal); R09.81 Nasal congestion; R51.9 Headache, unspecified; J02.9 Acute pharyngitis, unspecified; R50.9 Fever, unspecified
CPT/HCPCS: 87637; 99212